=== PATIENT | female | born 1975 | race Caucasian/White ===

== ENCOUNTER 2025-03-15 09:01 | Outpatient (AMB) | payer OTHER, SELFPAY ==
--- NOTE | 2025-03-15 12:53 | MHC.OFFVISWM ---
VS Expanded 03/15/25 13:07 Height 5 ft 5 in Weight 266 lb 8 oz BMI 44.3 Body Fat % 46.6 Body Fat Mass 124.4 Fat Free Mass 142.4 Visceral Fat Rating 15 Body Water Mass 101.6 Basal Metabolic Rate/Score 2,017 Intake Visit Reasons: [employer] [facility] vs [facility] BMI 44.4 Allergies Penicillins Allergy (Mild, Verified 03/15/25 12:54) hives Medication List - Last Reconciled 03/15/25 by Noel Weldon MD albuterol sulfate 90 mcg/actuation inhalation cetirizine (Zyrtec) 10 mg PO DAILY PRN ipratropium-albuterol 0.5 mg-3 mg(2.5 mg base)/3 mL mL inhalation levonorgestrel (Mirena) intrauterine levothyroxine mcg PO DAILY loperamide (Imodium A-D) 2 mg PO Q6H PRN sertraline mg PO HPI HPI [employer] [facility] vs [facility] BMI 44.4: Details: Start time: 12.52pm, End time: 1.41pm ?I spent 44 minutes speaking with the patient on the phone plus an additional 5 minutes reviewing and updating records for a total of 49 minutes HPI Comments Details: Previous weight loss efforts: Weight [employer]chers, Ant, RD x2 Wakes up: 7am, Sleeps: 11pm Breakfast: 8am (eggs with sausage) Lunch: 1pm (as dinner) Dinner: 7pm (chicken, rice, vegetables) Snacks: 4pm (cheese with crackers, fruits), 8pm (cheese, cookies, muffins) Exercise: Has home stationary bike Beverages: Coffee: none, tea: (hot: 1/wk), soda: Activia 0 calories, juice: none, ETOH: none PFSH Medical History (Updated 03/15/25 @ 13:00 by Noel Weldon MD) Anxiety Depression Asthma Sleep apnea treated with continuous positive airway pressure (CPAP) Hypothyroidism GERD (gastroesophageal reflux disease) Morbid obesity Surgical History (Updated 02/08/25 @ 10:51 by Gisell Post CMA) Hx of colonoscopy History of hip surgery History of mandibular surgery Hx of section H/O foot surgery Family History (Updated 02/08/25 @ 09:08 by Gisell Post CMA) Mother Diabetes Dementia Father Non Hodgkin's lymphoma Cancer Diabetes Hypertension Daughter No problems noted. Daughter No problems noted. Son No problems noted. Son No problems noted. Social History (Updated 02/08/25 @ 09:05 by Gisell Post [facility]) Alcohol intake: never Patient Tobacco Use Status: Never used Tobacco Telehealth Telehealth Telehealth Platform: Telephone Location of provider rendering services: practice address Location of patient: address on file Patient Identification confirmed using: Name, : Yes Telehealth method: voice only Patient verbally consented to treatment: Yes Patient verbally consented to billing insurance company: Yes Patient informed of any privacy concerns related to visit: Yes Minutes spent on Phone/Video with Pt.: 49 Assessment & Plan Assessment & Plan (1) Morbid obesity: Code(s): E66.01 - Morbid (severe) obesity due to excess calories Category: Medical Plan: 1.? Plan for lap sleeve gastrectomy. If diaphragmatic or ventral hernias are present at time of surgery, these will be repaired laparoscopically as well. I emphasized the importance of close follow-up, adherence to instructions and good communication. The surgery does not replace the need to change your lifestlyle which is the cause of the obesity problem. The surgery provides the motivation to try again to change your lifestyle, it reduces the appetite and make the transition to a better lifestyle easier and doubles the amount of weight you would lose compared to doing the lifestyle change without the surgery. You will need to be on a liquid diet with protein shakes for 2 weeks before surgery to maximize weight loss and boost your nutritional status to recover better from surgery and also for the first two weeks after surgery to let the stomach heal before we introduce other foods. After the first 2 weeks we will introduce protein bars and soft foods like scrambled eggs, cottage cheese and yogurt and after the 6th week will introduce meat, fish and cooked vegetables in small amounts. Over time you should be able to eat everything in small amounts. Side effects like nausea, vomiting, heartburn or abdominal pain are not common in the practice unless you are not following in the practice. This operation requires lifetime commitment to following in our practice and communication with me. You will much less weight and experience side effects if you don?t communicate or not following in the practice. Complications are rare and in our practice is about 1/10 of the national average. However, you can develop bleeding that may require transfusion (hasn?t happened for year in the practice), you may from complications (we did not have any deaths in the practice) and infections. Infections are usually a result of breakdown in communication or not understanding or following directions correctly. They are difficult to treat, they can happen during the first 6 weeks, they may require to be in the hospital for weeks or even months, not being able to eat by mouth and you may have drains and surgeries to try and correct the issue. Other risks and complications include possible conversion to an open procedure, leaks, small bowel obstruction, blood clots, cardiac, or pulmonary complications, as intermediate manager complications such as ulcers, insufficient weight loss and vitamin deficiencies. 2. You will receive a link of our software philippe to generate an individualized nutritional and exercise plan specific for you. Please send me a screenshot of the plans you will generate Meal to include lean meat (beef, fish, pork, turkey, chicken), or chadian yogurt, or egg whites, or beans with a salad with olive oil and fruits (berries, pears, apples, kiwi). Avoid salt, breads, potatoes, rice, pasta, desserts. ?3. If you choose shakes, each shake would be drunk slowly, like coffee in a period of 2 hours. ?4. If you choose bars, cut each bar in 4 pieces and eat each piece in 30min ?to make each bar last 2 hours. ?5. I emphasized the importance of measuring accurately the food portion and measure it when serving the food in plate ?6. The meal portions include a specific number of forks of meat and salad. You always eat the meat portion but you can replace up to half of salad/vegetables portion with rice, potatoes or pasta, or a fruit ?if you like. The less you do it the better weight loss will be. ?7. One full-size fork is what it can be scooped on the fork without falling aside and not what can be bit with the fork. Use regular forks like those you find in a typical restaurant. ?8.? Please buy the body composition scale we discussed and send me weight measurements as soon as possible and then once a week. Always include your diet and exercise plan. 9. The best exercise choice would be to use your stationary bike at home that can track calories. You can create and exercise plan with the [employer] philippe. ?10.?It is important of avoiding and for at least 18 months postoperatively and has been discussed at the infosession. ?11. Goal is to lose at least 1.5-2lbs per week ?12. Goal to lose 10% of your weight before surgery, which is about 26lbs. Ultimate weight goal: 240lbs before surgery 13. Please follow the diet plan exactly without any change. If you don't like something about the plan or you feel hungry you need to communicate with me so I can help you revise the plan. You should not change the plan yourself. 14. To be scheduled for EGD due to the history of sleeve gastrectomy and anemia. The possibility of biopsies was discussed. Patient needs to avoid use of NSAIDs and aspirin for 1 week prior to EGD. You must be on liquids only the day before your endoscopy. Risks of perforation and bleeding was discussed with the patient. This will be an outpatient procedure with IV sedation. Orders: Orders Hemoglobin A1c Today E03.9 - Hypothyroidism, unspecified, E66.01 - Morbid (severe) obesity due to excess calories, G47.30 - Sleep apnea, unspecified, J45.909 - Unspecified asthma, uncomplicated, K21.9 - Gastro-esophageal reflux disease without esophagitis Complete Blood Count Auto Diff Today E03.9 - Hypothyroidism, unspecified, E66.01 - Morbid (severe) obesity due to excess calories, G47.30 - Sleep apnea, unspecified, J45.909 - Unspecified asthma, uncomplicated, K21.9 - Gastro-esophageal reflux disease without esophagitis IRON PROFILE Today E03.9 - Hypothyroidism, unspecified, E66.01 - Morbid (severe) obesity due to excess calories, G47.30 - Sleep apnea, unspecified, J45.909 - Unspecified asthma, uncomplicated, K21.9 - Gastro-esophageal reflux disease without esophagitis Vitamin B12 and Folate Today E03.9 - Hypothyroidism, unspecified, E66.01 - Morbid (severe) obesity due to excess calories, G47.30 - Sleep apnea, unspecified, J45.909 - Unspecified asthma, uncomplicated, K21.9 - Gastro-esophageal reflux disease without esophagitis Zinc Today E03.9 - Hypothyroidism, unspecified, E66.01 - Morbid (severe) obesity due to excess calories, G47.30 - Sleep apnea, unspecified, J45.909 - Unspecified asthma, uncomplicated, K21.9 - Gastro-esophageal reflux disease without esophagitis Vitamin A Today E03.9 - Hypothyroidism, unspecified, E66.01 - Morbid (severe) obesity due to excess calories, G47.30 - Sleep apnea, unspecified, J45.909 - Unspecified asthma, uncomplicated, K21.9 - Gastro-esophageal reflux disease without esophagitis TSH reflex Free T4 Today E03.9 - Hypothyroidism, unspecified, E66.01 - Morbid (severe) obesity due to excess calories, G47.30 - Sleep apnea, unspecified, J45.909 - Unspecified asthma, uncomplicated, K21.9 - Gastro-esophageal reflux disease without esophagitis XR chest 2V Today E03.9 - Hypothyroidism, unspecified, E66.01 - Morbid (severe) obesity due to excess calories, G47.30 - Sleep apnea, unspecified, J45.909 - Unspecified asthma, uncomplicated, K21.9 - Gastro-esophageal reflux disease without esophagitis Insulin Today E03.9 - Hypothyroidism, unspecified, E66.01 - Morbid (severe) obesity due to excess calories, G47.30 - Sleep apnea, unspecified, J45.909 - Unspecified asthma, uncomplicated, K21.9 - Gastro-esophageal reflux disease without esophagitis H Pylori Breath Test Today E03.9 - Hypothyroidism, unspecified, E66.01 - Morbid (severe) obesity due to excess calories, G47.30 - Sleep apnea, unspecified, J45.909 - Unspecified asthma, uncomplicated, K21.9 - Gastro-esophageal reflux disease without esophagitis Lipid Panel Today E03.9 - Hypothyroidism, unspecified, E66.01 - Morbid (severe) obesity due to excess calories, G47.30 - Sleep apnea, unspecified, J45.909 - Unspecified asthma, uncomplicated, K21.9 - Gastro-esophageal reflux disease without esophagitis Comprehensive Met. Panel Today E03.9 - Hypothyroidism, unspecified, E66.01 - Morbid (severe) obesity due to excess calories, G47.30 - Sleep apnea, unspecified, J45.909 - Unspecified asthma, uncomplicated, K21.9 - Gastro-esophageal reflux disease without esophagitis C Reactive Protein Today E03.9 - Hypothyroidism, unspecified, E66.01 - Morbid (severe) obesity due to excess calories, G47.30 - Sleep apnea, unspecified, J45.909 - Unspecified asthma, uncomplicated, K21.9 - Gastro-esophageal reflux disease without esophagitis Vitamin B1 Today E03.9 - Hypothyroidism, unspecified, E66.01 - Morbid (severe) obesity due to excess calories, G47.30 - Sleep apnea, unspecified, J45.909 - Unspecified asthma, uncomplicated, K21.9 - Gastro-esophageal reflux disease without esophagitis Ferritin Today E03.9 - Hypothyroidism, unspecified, E66.01 - Morbid (severe) obesity due to excess calories, G47.30 - Sleep apnea, unspecified, J45.909 - Unspecified asthma, uncomplicated, K21.9 - Gastro-esophageal reflux disease without esophagitis Vitamin D 25-OH Total Today E03.9 - Hypothyroidism, unspecified, E66.01 - Morbid (severe) obesity due to excess calories, G47.30 - Sleep apnea, unspecified, J45.909 - Unspecified asthma, uncomplicated, K21.9 - Gastro-esophageal reflux disease without esophagitis US abdomen comp w elastography Today E03.9 - Hypothyroidism, unspecified, E66.01 - Morbid (severe) obesity due to excess calories, G47.30 - Sleep apnea, unspecified, J45.909 - Unspecified asthma, uncomplicated, K21.9 - Gastro-esophageal reflux disease without esophagitis ECG 12 lead EKG Today E03.9 - Hypothyroidism, unspecified, E66.01 - Morbid (severe) obesity due to excess calories, G47.30 - Sleep apnea, unspecified, J45.909 - Unspecified asthma, uncomplicated, K21.9 - Gastro-esophageal reflux disease without esophagitis FL upper GI w air Today E03.9 - Hypothyroidism, unspecified, E66.01 - Morbid (severe) obesity due to excess calories, G47.30 - Sleep apnea, unspecified, J45.909 - Unspecified asthma, uncomplicated, K21.9 - Gastro-esophageal reflux disease without esophagitis Referrals Behavioral Health Referral E03.9 - Hypothyroidism, unspecified, E66.01 - Morbid (severe) obesity due to excess calories, G47.30 - Sleep apnea, unspecified, J45.909 - Unspecified asthma, uncomplicated, K21.9 - Gastro-esophageal reflux disease without esophagitis Nutrition/Dietitian Referral E03.9 - Hypothyroidism, unspecified, E66.01 - Morbid (severe) obesity due to excess calories, G47.30 - Sleep apnea, unspecified, J45.909 - Unspecified asthma, uncomplicated, K21.9 - Gastro-esophageal reflux disease without esophagitis Medications: New tirzepatide (weight loss) (Zepbound) for 4 weeks 2.5 mg (0.5 mL) subcut QWEEK 2 mL 0RF E03.9 - Hypothyroidism, unspecified, E66.01 - Morbid (severe) obesity due to excess calories
[2025-03-15 13:07] VITALS: BMI 44.3
== END 2025-03-15 13:42 | disposition home or self-care (01) ==
LOC: HO.HBS 09:01
PROVIDERS: PCP Internal Medicine; Visit Provider Surgery
DX: E66.813 Obesity, class 3 (principal); Z68.41 Body mass index [BMI] 40.0-44.9, adult
CPT/HCPCS: 98010

== ENCOUNTER → 2025-03-24 08:59 | Outpatient (REF) | payer OTHER, SELFPAY ==
--- NOTE | ~2025-03-24 | XR_ITS ---
EXAMINATION: XR CHEST CLINICAL INFORMATION: E66.01 - Morbid (severe) obesity due to excess calories COMPARISON: None available. TECHNIQUE: 2 views of the chest were obtained. FINDINGS: No consolidation, pleural effusion or pneumothorax. Cardiomediastinal silhouette size is normal. Mild S-shaped curvature of the lower thoracic spine. Probable callus formation in the posterior lateral aspect of the right sixth rib. XR/XR chest 2V IMPRESSION: No acute airspace disease. Probable old healed rib fracture, right sixth rib. Electronically signed by: Abhijeet Davalos MD 03/24/2025 02:04 PM EDT
--- NOTE | 2025-03-24 09:44 | ECG_ITS ---
Test Reason : mor obesity Blood Pressure : */* mmHG Vent. Rate : 70 BPM Atrial Rate : 70 BPM P-R Int : 134 ms QRS Dur : 84 ms QT Int : 420 ms P-R-T Axes : 5 18 32 degrees QTcB Int : 453 ms Normal sinus rhythm Normal ECG No previous ECGs available Referred By: Noel Weldon Electronically Signed By: CASSIDY DEL ROSARIO
[2025-03-24 10:07] LABS: MANUAL DIFF FLAG NO
[2025-03-24 10:47] LABS: Basophils Percent Auto 0.9 % (0-2); Eosinophils Percent Auto 0.9 % (0-4); Hematocrit 41.3 % (37.0-47.0); Hemoglobin 13.6 g/dl (12.0-16.0); Imm Gran Abs Auto 0.01 X10*3/uL (0.00-0.03); Imm Gran Pct Auto 0.3 % (0.0-0.4); Lymphocytes Absolute Auto 1.6 X10*3/uL (1.2-4.9); Lymphocytes Percent Auto 47.5 % (20-40); Mean Corpuscular HGB Conc 32.9 g/dl (31.0-35.0); Mean Corpuscular Hemoglobin 28.9 pg (27.0-33.0); Mean Corpuscular Volume 87.9 fL (80.0-98.0); Mean Platelet Volume 9.9 fL (9.4-12.3); Monocytes Absolute Auto 0.3 X10*3/uL (0.1-1.2); Monocytes Percent Auto 8.6 % (2-11); Neutrophils Absolute Auto 1.4 x10*3/uL (2.0-8.3); Neutrophils Percent Auto 41.8 % (45-73); Platelet Count 269 X10*3/uL (160-400); Red Cell Distribution Width 12.5 % (11.0-16.0); White Blood Count 3.4 X10*3/uL (4.8-10.8)
[2025-03-24 11:01] LABS: Estimated Average Glucose 126 mg/dL; Hemoglobin A1C 151.7749 umol/L; Total Hemoglobin (HGBA1C) 3637.5866 umol/L
[2025-03-24 11:28] LABS: Alanine Aminotransferase 58 U/L (0-31); Albumin Level 4.4 g/dL (3.5-5.0); Alkaline Phosphatase 79 U/L (39-117); Anion Gap 11 (12-20); Aspartate Amino Transferase 45 U/L (5-31); Bilirubin Total 0.6 mg/dL (0.0-1.0); Blood Urea Nitrogen 13 mg/dL (9-16); C Reactive Protein 0.78 mg/dL (< or = 0.50); Calcium 9.1 mg/dL (8.4-10.2); Carbon Dioxide 25 mmol/L (22-29); Chloride 106 mmol/L (96-108); Cholesterol 162 mg/dL (<200); Estimated Glomerular Filt Rate > 60; Glucose Random 99 mg/dL (60-115); HDL Cholesterol 37 mg/dL (>40); Iron 162 mcg/dL (30-160); LDL Cholesterol Calculated 103 mg/dL (<100); Percent Iron Saturation 48 % (15-50); Potassium 3.8 mmol/L (3.3-5.1); Sodium 138 mmol/L (135-145); Total Iron Binding Capacity 336 mcg/dL (228-428); Total Protein 7.5 g/dL (6.5-8.0); Triglycerides 111 mg/dL (<150); Unsaturated Iron Binding 174 ug/dL
[2025-03-24 11:40] LABS: Ferritin 142 ng/mL (10-250); TSH reflex Free T4 1.26 uIU/mL (0.32-4.0); Vitamin D 25-OH Total 22.7 ng/mL (>30)
[2025-03-24 11:52] LABS: Folate 6.9 ng/mL (> or = 4.0); Vitamin B12 397 pg/mL (200-900)
[2025-03-24 11:58] LABS: Insulin 20 uU/mL (2-29)
== END ==
LOC: HO.CARD 08:59
PROVIDERS: PCP Internal Medicine; Visit Provider Surgery
DX: E66.01 Morbid (severe) obesity due to excess calories (principal); E03.9 Hypothyroidism, unspecified; K21.9 Gastro-esophageal reflux disease without esophagitis; J45.909 Unspecified asthma, uncomplicated; G47.30 Sleep apnea, unspecified
CPT/HCPCS: 36415; 71046; 80053; 80061; 82306; 82607; 82728; 82746; 83036; 83525; 83540; 84425; 84443; 84590; 84630; 85025; 86140; 93005

== ENCOUNTER → 2025-03-24 09:34 | Outpatient (BNV) | payer OTHER, SELFPAY | PROVIDERS: PCP Internal Medicine; Visit Provider Radiology Diagnostic Radiology | DX: E66.01 Morbid (severe) obesity due to excess calories (principal) | CPT/HCPCS: 71046 ==

== ENCOUNTER → 2025-03-24 09:44 | Outpatient (BNV) | payer OTHER, SELFPAY | PROVIDERS: PCP Internal Medicine; Visit Provider Internal Medicine | DX: E66.01 Morbid (severe) obesity due to excess calories (principal) | CPT/HCPCS: 93010 ==

== ENCOUNTER 2025-04-19 08:27 | Outpatient (AMB) | payer OTHER, SELFPAY ==
--- NOTE | 2025-04-19 08:05 | MHC.WMTHER ---
Intake Intake Visit Reasons: TV BH Intake Allergies Penicillins Allergy (Mild, Verified 03/15/25 12:54) hives [facility] Medical History (Updated 04/05/25 @ 17:35 by Noel Weldon MD) Anxiety Depression Asthma Sleep apnea treated with continuous positive airway pressure (CPAP) Hypothyroidism GERD (gastroesophageal reflux disease) Morbid obesity Surgical History (Updated 02/08/25 @ 10:51 by Gisell Post CMA) Hx of colonoscopy History of hip surgery History of mandibular surgery Hx of section H/O foot surgery Family History (Updated 02/08/25 @ 09:08 by Gisell Post CMA) Mother Diabetes Dementia Father Non Hodgkin's lymphoma Cancer Diabetes Hypertension Daughter No problems noted. Daughter No problems noted. Son No problems noted. Son No problems noted. Social History (Updated 02/08/25 @ 09:05 by Gisell Post CMA) Alcohol intake: never Patient Tobacco Use Status: Never used Tobacco Behavioral Health Assessment Weight Management Therapy Therapy Notes Details The patient is a 49-year-old female who presents for her initial visit to begin the behavioral health assessment as part of the surgical weight loss program. She was initially referred to the program by her primary care provider and expressed interest in weight loss medication. However, she now feels that medication alone will not address the underlying issues that contributed to her weight gain and is seeking a more comprehensive approach to her health and well-being. Presenting Concerns Referral Source WMP- Provider Reason for referral Completion of behavioral health assessment as part of process for weight-loss surgery. Precipitating Event Obesity. Food/Weight/Diet Expectations of change PT started the program on 03/15/2025 at 266 lbs. The initial goal is to lose 10% of your weight before surgery, which is about 26 lbs. The ultimate weight goal is 240 lbs. before surgery. And her most recent weight is as of today 04/19/2025 247Lbs. Patient goals are PT is implementing the following: Current meal plan: Exercise plan: History/Relationship with food Example of meals before starting the program: Breakfast: Lunch: Dinner: Snacks: Drinks/Liquids: History/Relationship with weight Doesn't eat gluten years ago due to migraines. In the last 10 years, the patient's Lowest weight was and the highest Social History Family history and relationship PT is for about 28 years. They have 4 children, the oldest is 26 and the youngest is 13. Her father is , and her mother is alive; she has dementia. She has 2 sisters and 1 brother. all of her 's family lives in the area. PT reports good family relationships. 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 Her 19 y/o is in college, and she is home for the summer. PT also cares for her mother 2x year for about 2 months at the time, Developmental history and status None reported. Currently WNL. Social support and children. close friend (Jenn). sister. Community support Friends from m[employer]onism. 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 Cultural/Ethnic information PT was born in [place]. And most of his family is still there. Legal Involvement and History Current or historical involvement with the legal system? None reported. Education Highest grade completed Bachelors degree Preferred learning style Learn by doing and Visual Currently enrolled in educational program? No Interested in further educational program? 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 ) Wants help to find employment? No Meaningful activities Gardening, reading, sewing/quilting, crocheting, wood working projects, refinishing things. Financial Situation Describe current financial situation Comfortable Financial assistance? Other (Insurance. ) Service Service? No Mental Health and Addiction Treatment Psychiatric history Patient currently attends counseling on a monthly basis. She began therapy approximately five years ago due to symptoms of anxiety and depression. She has experienced a few panic attacks in the past but reports stability since starting medication. She is currently prescribed Sertraline 150 mg, managed by her primary care provider. For counseling, she sees [facility]. Questionnaires PHQ-9 Over the last 2 weeks, how often have you been bothered by any of the following problems? 1. Little interest or pleasure in doing things: several days 2. Feeling down, depressed, or hopeless: not at all 3. Trouble falling or staying asleep, or sleeping too much: several days 4. Feeling tired or having little energy: more than half the days 5. Poor appetite or overeating: more than half the days 6. Feeling bad about yourself - or that you are a failure or have let yourself or your family down: several days 7. Trouble concentrating on things, such as reading the newspaper or watching television: several days 8. Moving or speaking so slowly that other people could have noticed. Or the opposite - being so fidgety or restless that you have been moving around a lot more than usual: not at all 9. Thoughts that you would be better off or of hurting yourself in some way: not at all Total score: 8 Depression Screening Interpretation: Positive (From new PT pack completed on 02/08/2025 - New one will be administered at next philippe.) Depression Screening Done: Yes Source: Developed by Drs. Yossi Turner, Haily Andino, Chevy Mckinney and colleagues, with an educational messi from [employer]. Binge Eating Scale Group 1 A. I don't feel self-conscious about my wt. or body size when I'm with others. B. I feel concerned about how I look to others, but it normally does not make me fell disappointed with myself C. I do get self-conscious about my appearance and wt. which makes me feel disappointed in myself. D. I feel very self-conscious about my wt. and frequently I feel intense shame and disgust for myself. I try to avoid social contacts because of my self-consciousness. Response Group 1: B Group 2 A. I don't have any difficulty eating slowly in the proper manner. B. Although I seem to gobble down foods, I don't end up feeling stuffed because of eating to much. C. At times, I tend to eat quickly and then, I feel uncomfortably full afterwards. D. I have the habit of bolting down my food, without really chewing it. When this happens I usually feel uncomfortably stuffed because I've eaten to much. Response Group 2: C Group 3 A. I feel capable to control my eating urges when I want to. B. I feel like I have failed to control my eating more than the average person. C. I feel utterly helpless when it comes to feeling in control of my eating urges. D. Because I feel so helpless about controlling my eating I have become very desperate about trying to get control. Response Group 3: B Group 4 A. I don't have the habit of eating when I'm bored. B. I sometimes eat when I'm bored, but often I'm able to get busy and get my mind off food. C. I have a regular habit of eating when I'm bored, but occasionally, I can use some other activity to get my mind off eating. D. I have a strong habit of eating when I'm bored. Nothing seems to help me breath the habit. Response Group 4: C Group 5 A. I'm usually physically hungry when I eat something. B. Occasionally, I eat something on impulse even though I really am not hungry. C. I have the regular habit of eating foods, that I might not really enjoy, to satisfy a hungry feeling even though physically, I don't need the food. D. Although I'm not physically hungry, I get a hungry feeling in my mouth that only seems to be satisfied when I eat a food, like sandwich, that fills my mouth. Sometimes, when I eat the food to satisfy my mouth hunger, I then spit the food out so I won't gain weight. Response Group 5: B Group 6 A. I don't feel any guilt or self-hate after I overeat. B. After I overeat, occasionally I feel guilt or self-hate. C. Almost all the time I experience strong guilt or self-hate after I overeat. Response Group 6: A Group 7 A. I don't lose total control of my eating when dieting even after periods when I overeat. B. Sometimes when I eat a forbidden food on a diet, I feel like I blew it and eat even more. C. Frequently, I have the habit of saying to myself, I've blown it now, why not go all the way, when I overeat on a diet. When that happens I eat more. D. I have a regular habit of starting a strict diets for myself but I break the diets by going on an eating binge. My life seems to be either a feast or famine. Response Group 7: A Group 8 A. I rarely eat so much food that I feel uncomfortably stuffed afterwards. B. Usually about once a month, I each such a quantity of food, I end up feeling very stuffed. C. I have regular periods during the month when I eat large amounts of food, either at mealtime or at snacks. D. I eat so much food that I regularly feel quite uncomfortable after eating and sometimes a bit nauseous. Response Group 8: B Group 9 A. My level of calorie intake does not go up very high or go down very low on a regular basis. B. Sometimes after I overeat, I will try to reduce my caloric intake to almost nothing to compensate for the excess calories I've eaten. C. I have a regular habit of overeating during the night. It seems that my routine is not to be hungry in the morning but overeat in the evening. D. In my adult years, I have had week-long periods where I practically starve myself. This follows periods when I overeat. It seems I live a life of either feast or famine. Response Group 9: C Group 10 A. I usually am able to stop eating when I want to. I know when enough is enough. B. Every so often, I experience a compulsion to eat which I can't seem to control. C. Frequently, I experience strong urges to eat which I seem unable to control, but at other times I can control my eating urges. D. I feel incapable of controlling urges to eat. I have a fear of not being able to stop eating voluntarily. Response Group 10: B Group 11 A. I don't have any problem stopping eating when I feel full. B. I usually can stop eating when I feel full but occasionally overeat leaving me feeling uncomfortably stuffed. C. I have a problem stopping eating once I start and usually I feel uncomfortably stuffed after I eat a meal. D. Because I have a problem not being able to stop eating when I want, I sometimes have to induce vomiting to relieve my stuffed feeling. Response Group 11: B Group 12 A. I seem to eat just as much when I'm with others, Family social gatherings as when I'm by myself. B. Sometimes, when I'm with other persons, I don't eat as much as I want to eat because I'm self-conscious about my eating. C. Frequently, I eat only a small amount of food when others are present, because I'm very embarrassed about my eating. D. I feel so ashamed about overeating that I pick times to overeat when I know no one will see me. I feel like a closet eater. Response Group 12: A Group 13 A. I eat three meals a day with only an occasional between meal snack. B. I eat 3 meals a day, but I also normally snack between meals. C. When I am snacking heavily, I get in the habit of skipping regular meals. D. There are regular periods when I seem to be continually eating, with no planned meals. Response Group 13: B Group 14 A. I don't think much about trying to control unwanted eating urges. B. At least some of the time, I feel my thoughts are pre-occupied with trying to control my eating urges. C. I feel that frequently I spend much time thinking about how much I ate or about trying not to eat anymore. D. It seems to me that most of my waking hours are pre-occupied by thoughts about eating or not eating. I feel like I'm constantly struggling not to eat. Response Group 14: B Group 15 A. I don't think about food a great deal. B. I have strong craving for food but they last only for brief periods of time. C. I have days when I can't seem to think about anything else but food. D. Most of my days seem to be pre-occupied with thoughts about food. I feel like I live to eat. Response Group 15: B Group 16 A. I usually know whether or not I'm physically hungry. I take the right portion of food to satisfy me. B. Occasionally, I feel uncertain about knowing whether or not I'm physically hungry. A these times it's hard to know how much food I should take to satisfy me. C. Even though I might know how many calories I should eat, I don't have any idea what is a normal amount of food for me. Response Group 16: B Binge Eating Score: 16 Score less than 17 Minimal Risk Score between 18-26 Moderate Risk Score between 27-46 High Risk Assessment & Plan Assessment & Plan (1) Anxiety disorder: Code(s): F41.9 - Anxiety disorder, unspecified (2) Pre-bariatric surgery psychological evaluation: Code(s): Z71.89 - Other specified counseling Plan Patient is not cleared at this time, as the behavioral health assessment is still in progress. She is scheduled to return in two weeks to continue the evaluation. Next Appointment: May 03, 2025, at 9:00 AM via telehealth. Telehealth [facility]health [facility] Location of [facility] rendering services: other Location of patient: address on file Patient Identification confirmed using: Name, : Yes Telehealth method: video Patient verbally consented to treatment: Yes Patient verbally consented to billing insurance company: Yes Patient informed of any privacy concerns related to visit: Yes Minutes spent on Phone/Video with Pt.: 60 Coding Level of Care Code New Pt Tele Psy Diag Jair ([id number]) Patient Type New Diagnoses Anxiety disorder F41.9 Pre-bariatric surgery psychological evaluation Z71.89 Time Spent (min) 60
== END 2025-04-19 09:11 | disposition home or self-care (01) ==
LOC: HO.HBST 08:27
PROVIDERS: PCP Internal Medicine; Visit Provider Counselor Mental Health
DX: F41.9 Anxiety disorder, unspecified (principal); Z71.89 Other specified counseling
CPT/HCPCS: 90791

== ENCOUNTER 2025-04-28 08:03 | Outpatient (REF) | payer OTHER, SELFPAY ==
--- NOTE | ~2025-04-28 | US_ITS ---
EXAMINATION: US COMPLETE ABDOMEN WITH LIVER ELASTOGRAPHY CLINICAL INFORMATION: Moderate/severe obesity due to excess calories COMPARISON: None available. TECHNIQUE: Real-time imaging of the abdominal viscera. Noninvasive ultrasound liver fibrosis assessment is performed using [employer] ElastPQ point quantification shear wave elastography (pSWE) with a C5-2 MHz transducer. Multiple elastography samples are obtained. FINDINGS: The exam is slightly limited due to body habitus. PANCREAS: The visualized pancreatic head and body are normal in appearance. The remainder of the pancreas is obscured from visualization by the overlying bowel gas. ABDOMINAL AORTA: No aortic aneurysm is seen. INFERIOR VENA CAVA: Visualized portions are normal. LIVER: The liver demonstrates normal size, contour and increased echogenicity. No focal lesion or intrahepatic biliary duct dilatation. The right lobe measures 16.1 cm in length. The left lobe measures 12.9 cm in length. Portal flow is hepatopedal Shear wave liver elastography median stiffness is 1.70 m/s (reference: normal median stiffness is 1.3 m/s or less). IQR/median stiffness to assess sampling precision is 0.08 (reference: good quality data set is IQR/median stiffness of 0.15 or less). GALLBLADDER: The gallbladder is physiologically distended without evidence of stones, sludge, polyps, wall thickening or pericholecystic fluid. Gallbladder wall thickness is 0.2 cm. COMMON BILE DUCT: Normal in caliber measuring 0.6 cm in diameter. RIGHT KIDNEY: No hydronephrosis. No renal calculi or focal parenchymal lesions. The kidney measures 10.4 cm in maximum dimension. LEFT KIDNEY: No hydronephrosis. No renal calculi or focal parenchymal lesions. The kidney measures 10.8 cm in maximum dimension. SPLEEN: Unremarkable. The spleen measures 10.2 cm in maximum dimension. FREE FLUID: None seen. US/US abdomen comp w elastography IMPRESSION: 1. Fatty liver. 2. Liver elastography: Median liver stiffness 1.70 suggestive of compensated advanced chronic liver disease. REFERENCE: Society of Radiologists in Ultrasound Liver Stiffness Thresholds (2020): LIVER STIFFNESS THRESHOLDS: *Liver Stiffness equal or less than 1.3 m/s: High probability of being normal. *Liver Stiffness less than 1.7 m/s: In the absence of other known clinical signs, rules out compensated advanced chronic liver disease. *Liver Stiffness 1.7-2.1 m/s: Suggestive of compensated advanced chronic liver disease but need further test for confirmation. *Liver Stiffness over 2.1 m/s: Rules in compensated advanced chronic liver disease. *Liver Stiffness over 2.4 m/s: Suggestive of clinically significant portal hypertension. QUALITY OF DATA SET: *IQR/Median value equal or less than 0.15 implies a quality data set. *IQR/Median value over 0.15 implies a poor quality data set. SIGNIFICANT CHANGE FROM PRIOR EXAM: Significant change if liver stiffness measurement is 10% or greater from prior exam. OTHER CONSIDERATIONS: The stage of liver fibrosis may be overestimated in the setting of acute hepatitis, liver inflammation, elevated liver function tests, hepatic vascular congestion, obstructive cholestasis, non-fasting state, and infiltrative diseases such as amyloidosis and lymphoma. In some patients with NAFLD, the liver stiffness thresholds for compensated advanced chronic liver disease may be lower. In causes other than viral hepatitis and NAFLD, liver stiffness thresholds are not well established. Electronically signed by: Randall Limon MD 04/28/2025 09:14 AM EDT
== END 2025-04-28 08:04 | disposition home or self-care (01) ==
LOC: HO.US 08:03
PROVIDERS: PCP Internal Medicine; Visit Provider Surgery
DX: E66.01 Morbid (severe) obesity due to excess calories (principal); E03.9 Hypothyroidism, unspecified; K21.9 Gastro-esophageal reflux disease without esophagitis; J45.909 Unspecified asthma, uncomplicated; G47.30 Sleep apnea, unspecified
CPT/HCPCS: 76700; 76981

== ENCOUNTER → 2025-04-28 08:06 | Outpatient (BNV) | payer OTHER, SELFPAY | PROVIDERS: PCP Internal Medicine; Visit Provider Radiology Diagnostic Radiology | DX: K76.9 Liver disease, unspecified (principal) | CPT/HCPCS: 76700 ==

== ENCOUNTER 2025-05-03 09:20 | Outpatient (AMB) | payer OTHER, SELFPAY ==
--- NOTE | 2025-05-03 09:05 | A.OFFWM_ITS ---
Intake Intake Visit Reasons: VIDEO Intake Part 2 Allergies Penicillins Allergy (Mild, Verified 03/15/25 12:54) hives [facility] Medical History (Updated 04/05/25 @ 17:35 by Noel Weldon MD) Anxiety Depression Asthma Sleep apnea treated with continuous positive airway pressure (CPAP) Hypothyroidism GERD (gastroesophageal reflux disease) Morbid obesity Surgical History (Updated 02/08/25 @ 10:51 by Gisell Post [facility]) Hx of colonoscopy History of hip surgery History of mandibular surgery Hx of section H/O foot surgery Family History (Updated 02/08/25 @ 09:08 by Gisell Post CMA) Mother Diabetes Dementia Father Non Hodgkin's lymphoma Cancer Diabetes Hypertension Daughter No problems noted. Daughter No problems noted. Son No problems noted. Son No problems noted. Social History (Updated 02/08/25 @ 09:05 by Gisell Post CMA) Alcohol intake: never Patient Tobacco Use Status: Never used Tobacco Behavioral Health Assessment Weight Management Therapy Therapy Notes Details The patient is a 49-year-old female presenting for her second visit to complete the behavioral health assessment as part of the surgical weight loss program. Initially referred by her primary care provider, she first expressed interest in weight loss medication. However, she now recognizes that medication alone will not address the underlying contributors to her weight gain and is seeking a more comprehensive, holistic approach to improving her health and well-being. She has been in individual therapy for approximately five years with Ro Benjamin [facility], for the treatment of anxiety and depression. She attends monthly sessions and reports stability in her symptoms. She is currently prescribed Sertraline 150 mg, managed by her primary care provider. Past panic attacks have been well controlled with treatment. She denies any history of psychiatric hospitalization, mental health crisis, and/or recent concerns around suicidal id eation, self-harm, or harm to others. No history of substance use is reported. There is no evidence of current emotional or stress-related eating. Scores on the Binge Eating Scale (BES) indicate a low risk for disordered eating, and PHQ- 9 results show no active depressive symptoms. Mental status exam findings are within normal limits, indicating no impairment in current functioning. The patient is considered stable and is cleared from a behavioral health standpoint. Presenting Concerns Referral Source WMP- Provider Reason for referral Completion of behavioral health assessment as part of process for weight-loss surgery. Precipitating Event Obesity. Living Situation Current Living Situation Own At risk of losing current housing? No Satisfied with current living situation? Yes Comments PT lives with her and children. Food/Weight/Diet Expectations of change PT started the program on 03/15/2025 at 266 lbs. The initial goal is to lose 10% of your weight before surgery, which is about 26 lbs. The ultimate weight goal is 240 lbs. before surgery. Weight is as of 04/19/2025: 247 lbs. Most recent weight as of 05/03/2025: 242 lbs. Target weight: 140- 150 lbs. PT is implementing the following: Current meal plan: combination of shakes/bars and 1 or 2 meals per day. She uses the right BMI and uses a combination of 2 types of plans depending on her days. Exercise plan: outdoor Walks. Scale: Yes. Communication with provider: yes, on Mondays. History/Relationship with food PT reports she likes to eat, she used to eat until feeling full, and when she was younger and more active, she didn't pay attention to food. when kids were younger, they were doing takeout out couple of days a week, or if they were running around, they would have more snacks than usual Example of meals before starting the program: Breakfast: eggs, sausage, and tater tots. Lunch: leftovers from dinner. Dinner: @7om - protein, starch, and a veggie, variety of casseroles, things in the crockpot (chicken/enchilada soup). 2x week takeout ([id number], chipotle, pizza) Snacks: cottage cheese, cheese and crackers, cheese and pepperoni. Drinks/Liquids: coffee: None. Juice: None. Water: about 60oz per day, at times, would add the true lemon powder. soda: none but does 2-3 No-calorie soda with/ stevia. History/Relationship with weight PT reports she doesn't eat gluten for years due to migraines. She was 120 lbs and very lean in her early 20s while in college. PT reports she has been overweight after having children. In her 20's, losing weight was easier. Now, in her 40s, it has been hard. in 2019 she was injured and had surgery on her foot, later in 2022 had to do the other foot, and she slowly gained at least 50 lbs. In the last 10 years, the patient's Lowest weight was 180Lbs and the highest 265Lbs History/Relationship with dieting Have met with a dietitian ( they worked on portion control, balanced eating, and intuitive eating), self-diet, PORFIRIO (23 years ago, was able to be at 150Lbs)Ant. Binge Eating Do you frequently eat large amounts of food in short periods of time, not feeling physically hungry? No Do you feel out of control when you eat a large amount of food in a short period of time? No Do you eat large amounts of food rapidly and typically alone? No Night Eating Do you wake up at least once during the night to eat? No If you wake up in the night, do you find that it is necessary to eat something in order to fall back asleep? No Do you have little or no appetite in the morning and feel very hungry in the evening, often overeating between dinner and when you go to bed? No Social History Family history and relationship PT is for about 28 years. They have 4 children, the oldest is 26 and the youngest is 13. Her father is , and her mother is alive; she has dementia. She has 2 sisters and 1 brother. all of her 's family lives in the area. PT reports good family relationships. 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 Her 19 y/o is in college, and she is home for the summer. PT also cares for her mother 2x year for about 2 months at the time, Developmental history and status None reported. Currently WNL. Social support and children. close friend (Jenn). sister. Community support Friends from [place]. 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 Jain/Spirituality Buddhism. Cultural/Ethnic information PT was born in [place]. And most of his family is still there. Legal Involvement and History Current or historical involvement with the legal system? None reported. Education Highest grade completed Bachelors degree Preferred learning style Learn by doing and Visual Currently enrolled in educational program? No Interested in further educational program? 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 ) Wants help to find employment? No Meaningful activities Gardening, reading, sewing/quilting, crocheting, wood working projects, refinishing things. Financial Situation Describe current financial situation Comfortable Financial assistance? Other (Insurance. ) Service Service? No Mental Health and Addiction Treatment Current/Past substance abuse? No Comments Alcohol: None Cigarettes/Tobacco: None Cannabis/Edibles: None Current/Past addictive behavior concerns? No Psychiatric history Patient currently attends counseling on a monthly basis. She began therapy approximately five years ago due to symptoms of anxiety and depression. She has experienced a few panic attacks in the past but reports stability since starting medication. She is currently prescribed Sertraline 150 mg, managed by her primary care provider. For counseling, she sees Ro Benjamin [facility]. Pt reports she has been never hospitalized or in crisis. Also denies any safety concerns around Suicidality, self-harm, and other-harm. SI several years ago after miscarriages over 24 years ago. Medical and Physical Health Summary Additional Medical History not covered in history None reported. Sexual History concerns None reported. Physical exam in the last year? Yes Pain Screening Current pain? No Pain in the last few months? Yes Comments Shoulder, feet pain (she had some ligaments damage, and fixed alignment issues after she injured). Medications Is the patient compliant with medications? Yes Does the patient have Gomez Guardian in place? Not applicable Does the patient use complimentary health approaches? No Trauma/Abuse History History of trauma? No Questionnaires PHQ-9 Over the last 2 weeks, how often have you been bothered by any of the following problems? 1. Little interest or pleasure in doing things: not at all 2. Feeling down, depressed, or hopeless: not at all 3. Trouble falling or staying asleep, or sleeping too much: several days (falling asleep.) 4. Feeling tired or having little energy: not at all 5. Poor appetite or overeating: not at all 6. Feeling bad about yourself - or that you are a failure or have let yourself or your family down: several days (mom guilt.) 7. Trouble concentrating on things, such as reading the newspaper or watching television: not at all 8. Moving or speaking so slowly that other people could have noticed. Or the opposite - being so fidgety or restless that you have been moving around a lot more than usual: not at all 9. Thoughts that you would be better off or of hurting yourself in some way: not at all Total score: 2 Depression Screening Interpretation: Negative Depression Screening Done: Yes 29932 - PHQ-9 Billing: Yes Source: Developed by Drs. Yossi Turner, Haily Andino, Chevy Mckinney and colleagues, with an educational messi from [employer]. Binge Eating Scale Group 1 A. I don't feel self-conscious about my wt. or body size when I'm with others. B. I feel concerned about how I look to others, but it normally does not make me fell disappointed with myself C. I do get self-conscious about my appearance and wt. which makes me feel disappointed in myself. D. I feel very self-conscious about my wt. and frequently I feel intense shame and disgust for myself. I try to avoid social contacts because of my self- consciousness. Response Group 1: B Group 2 A. I don't have any difficulty eating slowly in the proper manner. B. Although I seem to gobble down foods, I don't end up feeling stuffed because of eating to much. C. At times, I tend to eat quickly and then, I feel uncomfortably full afterwards. D. I have the habit of bolting down my food, without really chewing it. When this happens I usually feel uncomfortably stuffed because I've eaten to much. Response Group 2: C Group 3 A. I feel capable to control my eating urges when I want to. B. I feel like I have failed to control my eating more than the average person. C. I feel utterly helpless when it comes to feeling in control of my eating urges. D. Because I feel so helpless about controlling my eating I have become very desperate about trying to get control. Response Group 3: B Group 4 A. I don't have the habit of eating when I'm bored. B. I sometimes eat when I'm bored, but often I'm able to get busy and get my mind off food. C. I have a regular habit of eating when I'm bored, but occasionally, I can use some other activity to get my mind off eating. D. I have a strong habit of eating when I'm bored. Nothing seems to help me breath the habit. Response Group 4: C Group 5 A. I'm usually physically hungry when I eat something. B. Occasionally, I eat something on impulse even though I really am not hungry. C. I have the regular habit of eating foods, that I might not really enjoy, to satisfy a hungry feeling even though physically, I don't need the food. D. Although I'm not physically hungry, I get a hungry feeling in my mouth that only seems to be satisfied when I eat a food, like sandwich, that fills my mouth. Sometimes, when I eat the food to satisfy my mouth hunger, I then spit the food out so I won't gain weight. Response Group 5: B Group 6 A. I don't feel any guilt or self-hate after I overeat. B. After I overeat, occasionally I feel guilt or self-hate. C. Almost all the time I experience strong guilt or self-hate after I overeat. Response Group 6: A Group 7 A. I don't lose total control of my eating when dieting even after periods when I overeat. B. Sometimes when I eat a forbidden food on a diet, I feel like I blew it and eat even more. C. Frequently, I have the habit of saying to myself, I've blown it now, why not go all the way, when I overeat on a diet. When that happens I eat more. D. I have a regular habit of starting a strict diets for myself but I break the diets by going on an eating binge. My life seems to be either a feast or famine. Response Group 7: A Group 8 A. I rarely eat so much food that I feel uncomfortably stuffed afterwards. B. Usually about once a month, I each such a quantity of food, I end up feeling very stuffed. C. I have regular periods during the month when I eat large amounts of food, either at mealtime or at snacks. D. I eat so much food that I regularly feel quite uncomfortable after eating and sometimes a bit nauseous. Response Group 8: B Group 9 A. My level of calorie intake does not go up very high or go down very low on a regular basis. B. Sometimes after I overeat, I will try to reduce my caloric intake to almost nothing to compensate for the excess calories I've eaten. C. I have a regular habit of overeating during the night. It seems that my routine is not to be hungry in the morning but overeat in the evening. D. In my adult years, I have had week-long periods where I practically starve myself. This follows periods when I overeat. It seems I live a life of either feast or famine. Response Group 9: C Group 10 A. I usually am able to stop eating when I want to. I know when enough is enough. B. Every so often, I experience a compulsion to eat which I can't seem to control. C. Frequently, I experience strong urges to eat which I seem unable to control, but at other times I can control my eating urges. D. I feel incapable of controlling urges to eat. I have a fear of not being able to stop eating voluntarily. Response Group 10: B Group 11 A. I don't have any problem stopping eating when I feel full. B. I usually can stop eating when I feel full but occasionally overeat leaving me feeling uncomfortably stuffed. C. I have a problem stopping eating once I start and usually I feel uncomfortably stuffed after I eat a meal. D. Because I have a problem not being able to stop eating when I want, I sometimes have to induce vomiting to relieve my stuffed feeling. Response Group 11: B Group 12 A. I seem to eat just as much when I'm with others, Family social gatherings as when I'm by myself. B. Sometimes, when I'm with other persons, I don't eat as much as I want to eat because I'm self-conscious about my eating. C. Frequently, I eat only a small amount of food when others are present, because I'm very embarrassed about my eating. D. I feel so ashamed about overeating that I pick times to overeat when I know no one will see me. I feel like a closet eater. Response Group 12: A Group 13 A. I eat three meals a day with only an occasional between meal snack. B. I eat 3 meals a day, but I also normally snack between meals. C. When I am snacking heavily, I get in the habit of skipping regular meals. D. There are regular periods when I seem to be continually eating, with no planned meals. Response Group 13: B Group 14 A. I don't think much about trying to control unwanted eating urges. B. At least some of the time, I feel my thoughts are pre-occupied with trying to control my eating urges. C. I feel that frequently I spend much time thinking about how much I ate or about trying not to eat anymore. D. It seems to me that most of my waking hours are pre-occupied by thoughts about eating or not eating. I feel like I'm constantly struggling not to eat. Response Group 14: B Group 15 A. I don't think about food a great deal. B. I have strong craving for food but they last only for brief periods of time. C. I have days when I can't seem to think about anything else but food. D. Most of my days seem to be pre-occupied with thoughts about food. I feel like I live to eat. Response Group 15: B Group 16 A. I usually know whether or not I'm physically hungry. I take the right portion of food to satisfy me. B. Occasionally, I feel uncertain about knowing whether or not I'm physically hungry. A these times it's hard to know how much food I should take to satisfy me. C. Even though I might know how many calories I should eat, I don't have any idea what is a normal amount of food for me. Response Group 16: B Binge Eating Score: 16 Score less than 17 Minimal Risk Score between 18-26 Moderate Risk Score between 27-46 High Risk Assessment & Plan Assessment & Plan (1) Anxiety disorder: Code(s): F41.9 - Anxiety disorder, unspecified (2) Pre-bariatric surgery psychological evaluation: Code(s): Z71.89 - Other specified counseling Plan From a behavioral health standpoint, the patient is cleared to proceed and may be submitted for surgery when clinically appropriate. A post-operative follow-up is recommended within 1 to 3 weeks after surgery to monitor psychological adjustment, assess ongoing needs, and support continued progress. Next philippe: 1-3 weeks PO. Telehealth Telehealth Telehealth Platform: Pathflow Location of provider rendering services: other Location of patient: address on file Patient Identification confirmed using: Name, : Yes Telehealth method: video Patient verbally consented to treatment: Yes Patient verbally consented to billing insurance company: Yes Patient informed of any privacy concerns related to visit: Yes Minutes spent on Phone/Video with Pt.: 60 Coding Level of Care Code Established Pt Tele Psytx >53 mins (30185) Patient Type Established Diagnoses Anxiety disorder F41.9 Pre-bariatric surgery psychological evaluation Z71.89 Additional Codes PHQ-9 - 80225 - PHQ-9 Billing: Yes ([id number]) Time Spent (min) 60
== END 2025-05-03 10:18 | disposition home or self-care (01) ==
LOC: HO.HBST 09:20
PROVIDERS: PCP Internal Medicine; Visit Provider Counselor Mental Health
DX: F41.9 Anxiety disorder, unspecified (principal); Z71.89 Other specified counseling
CPT/HCPCS: 90837

== ENCOUNTER → 2025-05-03 09:20 | Outpatient (BNVA) | payer OTHER, SELFPAY | PROVIDERS: PCP Internal Medicine; Visit Provider Counselor Mental Health ==

== ENCOUNTER 2025-05-12 10:28 | Day surgery (SDC) | payer OTHER, SELFPAY ==
--- NOTE | 2025-05-10 12:55 | HO.ANESPROP2 ---
Documented by User: Deisy Armstrong NP 05/10/25 12:56 HPI - Anesthesia Eval Consult details Narrative: 50yo F for Upper Endoscopy Hx mandibular surgery PMFSH Active Problems Active Problems: All Active Problems Vitamin B1 deficiency (Acute) Vitamin B12 deficiency (Acute) Vitamin D deficiency (Acute) Anxiety (Acute) Depression (Acute) Asthma (Acute) Sleep apnea treated with continuous positive airway pressure (CPAP) (Acute) Hypothyroidism (Acute) GERD (gastroesophageal reflux disease) (Acute) Morbid obesity (Acute) Past Medical History Medical History Anxiety Depression Asthma Sleep apnea treated with continuous positive airway pressure (CPAP) Hypothyroidism GERD (gastroesophageal reflux disease) Morbid obesity Family History Family History Mother Diabetes Dementia Father Non Hodgkin's lymphoma Cancer Diabetes Hypertension Daughter No problems noted. Daughter No problems noted. Son No problems noted. Son No problems noted. Surgical History Surgical History Hx of colonoscopy History of hip surgery History of mandibular surgery Hx of section H/O foot surgery Social History Social History Alcohol intake: never Patient Tobacco Use Status: Never used Tobacco Meds Allergies Allergy/AdvReac Type Severity Reaction Status Date / Time Penicillins Allergy Mild hives Verified 03/15/25 12:54 Home Medications ?Medication ?Instructions ?Recorded ?Confirmed ?Last Taken ?Type albuterol sulfate 90 mcg/actuation inhalation 02/08/25 03/15/25 Unknown History aerosol inhaler cetirizine 10 mg capsule (Zyrtec) 10 mg PO DAILY PRN 02/08/25 03/15/25 Unknown History ipratropium 0.5 mg-albuterol 3 mg ml inhalation 02/08/25 03/15/25 Unknown History (2.5 mg base)/3 mL nebulization soln levonorgestrel 21 mcg/24 hr (up to intrauterine 02/08/25 03/15/25 Unknown History 8 years) 52 mg intrauterine device (Mirena) levothyroxine 50 mcg tablet mcg PO DAILY 02/08/25 03/15/25 Unknown History loperamide 2 mg tablet (Imodium 2 mg PO Q6H PRN 02/08/25 03/15/25 Unknown History A-D) sertraline 100 mg tablet mg PO 02/08/25 03/15/25 Unknown History Assessment and Plan Assessment Anesthesia Assessment: Chart Reviewed Documented by User: Lilia Jean-Baptiste MD 05/12/25 11:40 [facility] Past Medical History Medical History Anxiety Depression Asthma Sleep apnea treated with continuous positive airway pressure (CPAP) Hypothyroidism GERD (gastroesophageal reflux disease) Morbid obesity Family History Family History Mother Diabetes Dementia Father Non Hodgkin's lymphoma Cancer Diabetes Hypertension Daughter No problems noted. Daughter No problems noted. Son No problems noted. Son No problems noted. Surgical History Surgical History Hx of colonoscopy History of hip surgery History of mandibular surgery Hx of section H/O foot surgery History of Problems with Anesthesia: No Social History Social History Alcohol intake: never Patient Tobacco Use Status: Never used Tobacco Meds Allergies Allergy/AdvReac Type Severity Reaction Status Date / Time Penicillins Allergy Mild hives Verified 03/15/25 12:54 Home Medications ?Medication ?Instructions ?Recorded ?Confirmed ?Last Taken ?Type albuterol sulfate 90 mcg/actuation inhalation 02/08/25 03/15/25 Unknown History aerosol inhaler cetirizine 10 mg capsule (Zyrtec) 10 mg PO DAILY PRN 02/08/25 03/15/25 Unknown History ipratropium 0.5 mg-albuterol 3 mg ml inhalation 02/08/25 03/15/25 Unknown History (2.5 mg base)/3 mL nebulization soln levonorgestrel 21 mcg/24 hr (up to intrauterine 02/08/25 03/15/25 Unknown History 8 years) 52 mg intrauterine device (Mirena) levothyroxine 50 mcg tablet mcg PO DAILY 02/08/25 03/15/25 Unknown History loperamide 2 mg tablet (Imodium 2 mg PO Q6H PRN 02/08/25 03/15/25 Unknown History A-D) sertraline 100 mg tablet mg PO 02/08/25 03/15/25 Unknown History Exam Airway Mallampati Class: II TM Dist: >3cm Loose/Missing/Broken Teeth: No Heart: RRR Lungs: CTA Assessment and Plan Assessment Anesthesia Assessment: Anesthesia Plan Discussed Final Anesthetic Review History of Problems with Anesthesia: No NPO: Yes ASA Class: III Final Preanesthetic Review: Meds/Allgs Chart Reviewed, Consent Obtained/Reviewed and Anes Risks/Benef Reviewed Patient Risk: Intermediate Procedure Risk: Intermediate Anesthetic Plan Anesthetic Plan: MAC: Disposition: Standard PACU
[2025-05-12 10:57] VITALS: BMI 39.6
[2025-05-12 10:58] LABS: UPreg QC Valid YES; Urine Pregnancy NEGATIVE (NEGATIVE)
--- NOTE | 2025-05-12 11:02 | MHC.SHP ---
Pre-Procedural Eval Section A - 24 Hr Update-Section A only Date of Service: 05/12/25 The patient is an INPATIENT: No The patient has been examined within 24 hours of the surgical procedure. The History & Physical has been completed within 30 days and I have reviewed it.: Yes Section B - Complete if H&P > 30 days Chief Complaint: Morbid (severe) obesity due to excess calories Details of Present Illness: GERD Relevant Family History (Specify if Yes): No Relevant Social History: None Present Medications: None Medical History: No relevant PMH History of Previous Operations: No relevant previous surgery Allergies: Allergies Allergy/AdvReac Type Severity Reaction Status Date / Time Penicillins Allergy Mild hives Verified 03/15/25 12:54 Review of Systems Sugical H&P ROS: Negative: Constitution, Cardiovascular, Respiratory, Neurological, Psychiatric, Hem-Onc, Allergic/Immunologic, Gastrointestinal, Genitourinary, Musculoskeletal, Integumentary, Endocrine and Eyes/Ears/Nose/Throat Exam Surgical H&P Exam: Normal: HEENT, Normal: Heart, Normal: Lungs, Normal: Extremities, Normal: Abdomen, Normal: Skin and Normal: Neurological Plan Diagnosis/Plan: Unchanged (EGD to assess etiology of GERD. Risks of bleeding and perforation were discussed with the patient and she is in agreement with the plan.) I have reviewed the history and physical and performed a pertinent physical examination on my patient. No changes have occurred unless specified. Time Spent With Patient Time: Total time managing care of this patient today ____ minutes.
--- NOTE | 2025-05-12 11:07 | PM.OP ---
Brief Operative Note Date of Service: 05/12/25 Pre-op diagnosis: GERD Post-op diagnosis: same Procedure: PROCEDURE DATE: 05/12/2025 PREOPERATIVE DIAGNOSIS: GERD POSTOPERATIVE DIAGNOSIS: ?Same as above. 1) small hiatal hernia PROCEDURE: Aonwajim-dnalmq-dfuwqkagcabt with biopsies Surgeon: Rubina Weldon M.D.. Ph.D. Aircraft General Repair Mechanic: None ? Anesthesia: IV sedation Estimated blood loss: ?Minimal FINDINGS AND PROCEDURE: ? OPERATIVE INDICATIONS: ?The patient is a 50 year old female known to me who is interested in bariatric surgery. The patient has GERD. Based on this information I recommended an upper endoscopy to evaluate the patient's symptoms. Risks and complications of the surgery were discussed with the patient in advance particularly the possibility of perforation or bleeding that may require surgical intervention. The patient understood the risks and was in agreement with the plan. ? PROCEDURE: After informed consent was obtained by the patient, the patient was ?transferred to the Operating Room and was placed in the supine position.? After successful induction of IV sedation, a mouth block was inserted and the patient was placed in the left lateral decubitus position. An upper endoscopy was performed next, the oropharynx and esophagus appeared within the normal limits. There was a small 2cm hiatal hernia. The z-line was smooth. Two biopsies were obtained from the distal esophagus 2-3 cm proximal to the GE junction and two additional biopsies from the GE junction. The stomach was entered and it appeared to be of normal size. There was no gastritis. There was no stricture or ulcer. A biopsy was obtained from the gastric fundus and the antrum. No significant bleeding was noted from any of the biopsy sites. Retroflexion of the scope confirmed the presence of a small diaphragmatic hernia. The scope was then advanced into the duodenum which appeared to be normal as well. At that point the duodenum ?and the stomach were decompressed and the scope was withdrawn from the patient's mouth. The patient extubated and was transferred in stable condition to the Recovery Room for further care. I was present and performed all steps of the procedure. There were no residents to assist with this case. Bill Weldon M.D., Ph.D. Surgeon: Noel Weldon MD Anesthesia: MAC Was an Aircraft General Repair Mechanic used for this Procedure?: No Estimated blood loss (mL): 0 IV fluids (mL): 400 Urine output (mL): 0 (No Fletcher to record output) Pathology: other (1) antrum x1, 2) fundus x1, 3) GE junction x2, 4) distal esophagus x2) Condition: stable Disposition: PACU
[2025-05-12] MEDS: Lactated Ringers 1,000 ML 80 ML IVCONT (11:10)
[2025-05-12 11:30] VITALS: BP 125/73; PULSE 87; RESP 16; TEMP 36.1; O2SAT 100
[2025-05-12 11:45] VITALS: BP 121/75; PULSE 66; RESP 16; TEMP 36.9; O2SAT 99
== END 2025-05-12 12:14 | disposition home or self-care (01) ==
PROVIDERS: Nurse Practitioner; PCP Internal Medicine; Visit Provider Surgery
PROC: 0DJ08ZZ Inspection of Upper Intestinal Tract, Via Natural or Artificial Opening Endoscopic (ICD-10-PCS; CPT 43235; principal; 2025-05-12 12:50)
DX: K21.9 Gastro-esophageal reflux disease without esophagitis (principal); E66.01 Morbid (severe) obesity due to excess calories; Z68.41 Body mass index [BMI] 40.0-44.9, adult; K44.9 Diaphragmatic hernia without obstruction or gangrene; E03.9 Hypothyroidism, unspecified; G47.30 Sleep apnea, unspecified; F33.9 Major depressive disorder, recurrent, unspecified; F41.9 Anxiety disorder, unspecified; J45.909 Unspecified asthma, uncomplicated; Z79.51 Long term (current) use of inhaled steroids; Z79.899 Other long term (current) drug therapy; Z99.89 Dependence on other enabling machines and devices; Z88.0 Allergy status to penicillin; Z98.890 Other specified postprocedural states
CPT/HCPCS: 43239; 81025; 88305; 88313; 88342; J2003; J2704

== ENCOUNTER → 2025-05-12 10:28 | Outpatient (BNV) | payer OTHER, SELFPAY | PROVIDERS: PCP Internal Medicine; Visit Provider Surgery | DX: K44.9 Diaphragmatic hernia without obstruction or gangrene (principal) | CPT/HCPCS: 43239 ==

== ENCOUNTER 2025-05-26 09:33 | Outpatient (REF) | payer OTHER, SELFPAY ==
[2025-05-26 10:08] LABS: MANUAL DIFF FLAG NO
[2025-05-26 10:40] LABS: Basophils Percent Auto 0.8 % (0-2); Hematocrit 42.1 % (37.0-47.0); Hemoglobin 14.2 g/dl (12.0-16.0); Imm Gran Abs Auto 0.01 X10*3/uL (0.00-0.03); Imm Gran Pct Auto 0.3 % (0.0-0.4); Lymphocytes Absolute Auto 1.6 X10*3/uL (1.2-4.9); Lymphocytes Percent Auto 42.4 % (20-40); Mean Corpuscular HGB Conc 33.7 g/dl (31.0-35.0); Mean Corpuscular Volume 86.1 fL (80.0-98.0); Mean Platelet Volume 10.1 fL (9.4-12.3); Monocytes Absolute Auto 0.3 X10*3/uL (0.1-1.2); Monocytes Percent Auto 8.1 % (2-11); Neutrophils Absolute Auto 1.8 x10*3/uL (2.0-8.3); Neutrophils Percent Auto 47.4 % (45-73); Platelet Count 226 X10*3/uL (160-400); Red Blood Count 4.89 X10*6/uL (4.20-5.50); Red Cell Distribution Width 11.9 % (11.0-16.0); White Blood Count 3.8 X10*3/uL (4.8-10.8)
[2025-05-26 10:59] LABS: Estimated Average Glucose 103 mg/dL; Hemoglobin A1c % 5.2 % (<6.0); Total Hemoglobin (HGBA1C) 3822.2697 umol/L
[2025-05-26 11:02] LABS: Prothrombin Time 11.8 SEC (10.9-12.4)
[2025-05-26 11:05] LABS: Partial Thromboplastin Time 31.6 SEC (26.0-36.8)
[2025-05-26 11:17] LABS: Alanine Aminotransferase 37 U/L (0-31); Albumin Level 4.6 g/dL (3.5-5.0); Alkaline Phosphatase 82 U/L (39-117); Anion Gap 13 (12-20); Aspartate Amino Transferase 29 U/L (5-31); Bilirubin Total 0.7 mg/dL (0.0-1.0); Blood Urea Nitrogen 17 mg/dL (9-16); C Reactive Protein 0.57 mg/dL (< or = 0.50); Calcium 9.5 mg/dL (8.4-10.2); Carbon Dioxide 23 mmol/L (22-29); Chloride 106 mmol/L (96-108); Cholesterol 150 mg/dL (<200); Estimated Glomerular Filt Rate > 60; Glucose Random 77 mg/dL (60-115); HDL Cholesterol 35 mg/dL (>40); LDL Cholesterol Calculated 90 mg/dL (<100); Potassium 3.9 mmol/L (3.3-5.1); Sodium 138 mmol/L (135-145); Total Protein 7.7 g/dL (6.5-8.0); Triglycerides 126 mg/dL (<150)
[2025-05-26 11:51] LABS: Insulin 13 uU/mL (2-29); TSH reflex Free T4 1.93 uIU/mL (0.32-4.0)
== END 2025-05-26 09:34 | disposition home or self-care (01) ==
LOC: HO.LAB 09:33
PROVIDERS: PCP Internal Medicine; Visit Provider Surgery
DX: E66.812 Obesity, class 2 (principal); E66.01 Morbid (severe) obesity due to excess calories; Z68.38 Body mass index [BMI] 38.0-38.9, adult; J45.909 Unspecified asthma, uncomplicated; G47.30 Sleep apnea, unspecified; E03.9 Hypothyroidism, unspecified
CPT/HCPCS: 36415; 80053; 80061; 83036; 83525; 84443; 85025; 85610; 85730; 86140; 99212

== ENCOUNTER 2025-05-26 09:44 | Outpatient (AMB) | payer OTHER, SELFPAY ==
--- NOTE | 2025-05-26 20:09 | A.OFFVIS_ITS ---
VS Expanded 05/26/25 20:16 Height 5 ft 5 in Weight 233 lb 2 oz BMI 38.8 Body Fat % 51 Body Fat Mass 118.9 Fat Free Mass 114.2 Visceral Fat Rating 20 Body Water % 33.6 Body Water Mass 78.3 Basal Metabolic Rate/Score 1,487 Intake Visit Reasons: TV Pre Op LSG 06/02/25 Allergies Penicillins Allergy (Mild, Verified 05/26/25 20:17) hives Medication List - Last Reconciled 05/26/25 by Noel Weldon MD albuterol sulfate 90 mcg/actuation inhalation cetirizine (Zyrtec) 10 mg PO DAILY PRN cholecalciferol (vitamin D3) 125 mcg PO DAILY ipratropium-albuterol 0.5 mg-3 mg(2.5 mg base)/3 mL mL inhalation levonorgestrel (Mirena) intrauterine levothyroxine mcg PO DAILY loperamide (Imodium A-D) 2 mg PO Q6H PRN mecobalamin (vitamin B12) 1,000 mcg sublingual DAILY ondansetron 4 mg PO Q12H pantoprazole 40 mg PO DAILY polyethylene glycol 3350 17 grams PO DAILY sertraline mg PO sucralfate 10 mL PO BID thiamine HCl (vitamin B1) 100 mg PO DAILY tirzepatide (weight loss) (Zepbound) 2.5 mg (0.5 mL) subcut QWEEK tirzepatide (weight loss) (Zepbound) 5 mg (0.5 mL) subcut QWEEK tirzepatide (weight loss) (Zepbound) 7.5 mg (0.5 mL) subcut QWEEK HPI HPI TV Pre Op LSG 06/02/25: Details: Start time: 4pm, End time 4.30pm. I spent 25 minutes with the patient and 5 minutes to create the note. HPI Comments Details: Overall weight loss: 33.6lbs, or 12.6% TBWL PFSH Medical History Anxiety Depression Asthma Sleep apnea treated with continuous positive airway pressure (CPAP) Hypothyroidism GERD (gastroesophageal reflux disease) Morbid obesity Surgical History Hx of colonoscopy History of hip surgery History of mandibular surgery Hx of section H/O foot surgery Family History Mother Diabetes Dementia Father Non Hodgkin's lymphoma Cancer Diabetes Hypertension Daughter No problems noted. Daughter No problems noted. Son No problems noted. Son No problems noted. Social History Alcohol intake: never Patient Tobacco Use Status: Never used Tobacco Telehealth Telehealth Telehealth Platform: Telephone Location of provider rendering services: practice address Location of patient: address on file Patient Identification confirmed using: Name, : Yes Telehealth method: voice only Patient verbally consented to treatment: Yes Patient verbally consented to billing insurance company: Yes Patient informed of any privacy concerns related to visit: Yes Minutes spent on Phone/Video with Pt.: 30 Assessment & Plan Assessment & Plan (1) Obesity: Code(s): E66.9 - Obesity, unspecified Category: Medical Qualifiers: Obesity type: due to excess calories Obesity classification: adult class 2 (BMI 35 - 39.9) Serious obesity comorbidity presence: with serious comorbidity Body mass index: BMI 38.0-38.9 Qualified Code(s): E66.812 - Obesity, class 2; E66.01 - Morbid (severe) obesity due to excess calories; Z68.38 - Body mass index [BMI] 38.0-38.9, adult Plan: 1. Plan for lap sleeve gastrectomy including upper GI endoscopy. All tests has been completed and reviewed and the patient is cleared for the surgery. If diaphragmatic or ventral hernias are present at time of surgery, these will be repaired laparoscopically as well. The surgery does not replace the need to change your lifestlyle which is the cause of the obesity problem. The surgery provides the motivation to try again to change your lifestyle, it reduces the appetite and make the transition to a better lifestyle easier and doubles the amount of weight you would lose compared to doing the lifestyle change without the surgery. You will need to be on a liquid diet with protein shakes for 2 weeks before surgery to maximize weight loss and boost your nutritional status to recover better from surgery and also for the first two weeks after surgery to let the stomach heal before we introduce other foods. After the first 2 weeks we will introduce protein bars and soft foods like scrambled eggs, cottage cheese and yogurt and after the 6th week will introduce meat, fish and cooked vegetables in small amounts. Over time you should be able to eat everything in small amounts. Side effects like nausea, vomiting, heartburn or abdominal pain are not common in the practice unless you are not following in the practice. This operation requires lifetime commitment to following in our practice and communication with me. You will much less weight and experience side effects if you don?t communicate or not following in the practice. Complications are rare and in our practice is about 1/10 of the national average. However, you can develop bleeding that may require transfusion (hasn?t happened for year in the practice), you may from complications (we did not have any deaths in the practice) and infections. Infections are usually a result of breakdown in communication or not understanding or following directions correctly. They are difficult to treat, they can happen during the first 6 weeks, they may require to be in the hospital for weeks or even months, not being able to eat by mouth and you may have drains and surgeries to try and correct the issue. Other risks and complications include possible conversion to an open procedure, leaks, small bowel obstruction, blood clots, cardiac, or pulmonary complications, as director long term care complications such as ulcers, insufficient weight loss and vitamin deficiencies. So far she has proven to be an excellent communicator and very compliant with all our directions accomplishing a great weight loss. I believe that she is an excellent candidate and she is ready. 2. Preop prescriptions were provided and explained the purpose of each one. Need to be purchased preop. Start Pantoprazole now as you get it from the pharmacy, 1 pill per day. Sucralfate and Zofran are for after surgery as needed. 3. Bowel prep: please do 7 packets of Miralax mixing each one with a an 8oz glass of water, crystal light, gatorade zero, or propel on 05/30/25 and the same amount on 05/31/25. The Miralax you begin with one packet at a time in 8oz water or crystal light, gatorade zero, or propel as early in the day as you can and you do them back to back until you finish them. Continue the protein shakes during the bowel prep. 4. Needs to purchase 1oz medicine cups . 5. Needs to purchase Children's liquid Tylenol for postop pain control. 6. She needs to stop Zepbound as of today 05/24/25. Avoid aspirin, motrin, Advil, Aleve, Ibuprofen, Naproxyn. Tylenol is OK. 7. She needs to purchase the Celebrate multivitamins from the hospital's gift shop. 8. Will do basic preop blood work-up any day between tomorrow Saturday05/25/25 and Saturday05/28/25 fasting for 12 hours and is scheduled to see the Anesthesiologist prior to the day of surgery. 9. Importance of adherence to postop folllow-up and recommendations was underscored and she understands that. 10. Stop food and bars as of tomorrow and create an aggressive meal plan with only Celebrate Rebuild protein shakes using the [employer]. Please send me a screenshot of the meal you will create. 11. No soups, broths or V8 12. The patient's medical history has been reviewed and they are considered low risk for post op DVT and therefore DVT prophylaxis is not considered necessary. Travel after surgery was reviewed. The patient has not disclosed any travel plans during the first 30 days after surgery and they have been advised that within the first 30 days after surgery any bus, plane, train or car travel over 2 hours in duration is contraindicated due to the possibility of developing blood clots from immobility. Any travel, needs to include periods of ambulation of 10 minutes in duration every 2 hours. Patient was instructed to discuss any plans for travel during this period with their bariatric surgeon. 13. Use your CPAP daily and bring it to the hospital with your mask 14. Please take at the day of surgery the following medications: NONE 16. Stop any control pills and don't use them for one month after surgery 15. Absolutely no smoking or vaping, or marijuana until the surgery and for at least the first 4 weeks. Only nicotine patches are allowed. 16. Send me weight measurements again on Saturday06/01/25, the day of surgery before you go to the hospital. 17. Avoid any steroids by mouth for any reason. Let me know if someone prescribes them to you 18. These instructions supersede anything else you read in the handbook, anything you watched in videos or classes or you were told by any other provider. If there is any conflict, you follow the above instructions and nothing else.
[2025-05-26 20:16] VITALS: BMI 38.8
== END 2025-05-26 20:19 | disposition home or self-care (01) ==
LOC: HO.HBS 09:44
PROVIDERS: PCP Internal Medicine; Visit Provider Surgery
DX: E66.812 Obesity, class 2 (principal); E66.01 Morbid (severe) obesity due to excess calories; Z68.38 Body mass index [BMI] 38.0-38.9, adult
CPT/HCPCS: 99214

== ENCOUNTER 2025-06-01 08:15 | Day surgery (SDC) | payer OTHER, SELFPAY ==
[2025-05-31 10:33] VITALS: BMI 37.6
[2025-06-01] VITALS (10 sets, daily range): BP systolic 111–131; BP diastolic 58–78; PULSE 64–78; RESP 12–18; TEMP 36.1–36.9; O2SAT 2–100; BMI 37.6
[2025-06-01 08:25] LABS: UPreg QC Valid YES
[2025-06-01] MEDS: Lactated Ringers 1,000 ML 999 ML IV (08:44)
[2025-06-01] MEDS: Aprepitant 32 MG/4.4 ML VIAL IVPUSH (08:45)
--- NOTE | 2025-06-01 09:51 | MHC.SHP ---
Pre-Procedural Eval Section A - 24 Hr Update-Section A only Date of Service: 06/01/25 The patient is an INPATIENT: Yes The patient has been examined within 24 hours of the surgical procedure. The History & Physical has been completed within 30 days and I have reviewed it.: Yes Section B - Complete if H&P > 30 days Chief Complaint: OBESITY Relevant Family History (Specify if Yes): No Relevant Social History: None Present Medications: None Medical History: No relevant PMH History of Previous Operations: No relevant previous surgery Allergies: Allergies Allergy/AdvReac Type Severity Reaction Status Date / Time Penicillins Allergy Mild hives Verified 06/01/25 08:48 Review of Systems Sugical H&P ROS: Negative: Constitution, Cardiovascular, Respiratory, Neurological, Psychiatric, Hem-Onc, Allergic/Immunologic, Gastrointestinal, Genitourinary, Musculoskeletal, Integumentary, Endocrine and Eyes/Ears/Nose/Throat Exam Surgical H&P Exam: Normal: HEENT, Normal: Heart, Normal: Lungs, Normal: Extremities, Normal: Abdomen, Normal: Skin and Normal: Neurological Plan Diagnosis/Plan: Unchanged I have reviewed the history and physical and performed a pertinent physical examination on my patient. No changes have occurred unless specified. Time Spent With Patient Time: Total time managing care of this patient today ____ minutes.
--- NOTE | 2025-06-01 09:51 | PM.OP ---
Brief Operative Note Date of Service: 06/01/25 Pre-op diagnosis: Severe obesity with comorbidities Post-op diagnosis: same (& paraesophageal lipoma) Procedure: INITIAL PATIENT BMI ON PRESENTATION AT OUR OFFICE: 44 kg/m2 LAST BMI BEFORE SURGERY: 38.9 kg/m2 COMORBIDITIES: sleep apnea on CPAP, asthma, hypothyroidism, IBS, depression, anxiety, GERD, liver fibrosis ?The patient presented to the Weight Management Program with significant obesity that was negatively impacting the patient's comorbidities as listed above.? The program is a phased program with a special focus on preoperative medical weight management to promote substantial weight loss and prepare the patients for the second phase of the program: bariatric surgery. The patient participated in an intensive weekly lifestyle ?intervention and exercise program during which the patient ?has lost between the initial office visit and the last preoperative visit 33.6 lbs, or 12.6% of initial actual body weight. It was deemed appropriate for the patient to now have bariatric surgery. In light of the current Covid-19 pandemic and the well documented strong association of obesity and increased risk of worse outcomes if infected with Covid-19 (REFERENCES:https://pubmed.ncbi.nlm.nih.gov/39880394/,?https://pubmed.ncbi.nlm.nih.gov/08690504/), any delay in undergoing bariatric surgery may lead to the patient's worsening health condition and increased?risk of more severe Covid-19 disease if infected. In addition a recent?study from [facility] published in [facility] on 11/27/2021 ([email or web address]) found that, among patients with obesity, substantial weight loss achieved with surgery was associated with improved outcomes of COVID-19 infection. The findings suggest that obesity can be a modifiable risk factor for the severity of COVID-19 infection. In addition, the patient met the BMI-criteria for bariatric surgery based on the BMI on initial presentation. The patient should not be penalized for achieving such weight loss because ?it is not sustainable long-term without surgical intervention and it was achieved in preparation for bariatric surgery ?under my direction and based on my published research ([email or web address]).[email or web address] and?https://www.soard.org/article/[email or web address](23)56430-X/pdf) ?that a 10% preoperative weight loss improves long-term weight loss after surgery and reduces perioperative complications.? Insurance carriers such as [facility] have endorsed my recommendations ?and have included in their policies criteria to include a 10% preoperative weight loss requirement. PROCEDURE: Esophago-gastroscopy, laparoscopic excision of para-esophageal lipoma, laparoscopic lysis of adhesions, laparoscopic sleeve gastrectomy and laparoscopic gastropexy INDICATIONS: This is a 50 year-old female who was electively scheduled for laparoscopic, possibly open sleeve gastrectomy. The risks and complications of the procedure were discussed with the patient in advance, particularly the possibility of ; pulmonary embolism; staple line leak; bleeding; GERD; cardiac, pulmonary, or renal complications; as well as long-term problems such as insufficient weight loss, vitamin deficiency, strictures, or ulcers. The patient understood all the risks, and was in agreement to proceed with surgery. DESCRIPTION OF PROCEDURE: After informed consent was obtained from the patient, the patient was given preoperative antibiotics, and was transferred to the operating room. After successful induction of general anesthesia, pneumatic compression devices were placed on both lower extremities. An upper endoscopy was performed next. The oropharynx and esophagus appeared to be within normal limits. There was no diaphragmatic hernia present. The stomach was entered. Then after all fluid and air were suctioned and the stomach was fully decompressed, the scope was withdrawn and secured in the mid esophagus. The patient was then prepped and draped in the usual sterile manner, and abdominal access was established at the right upper quadrant with the Molly technique. A 12 mm blunt port was inserted, and the abdomen was insufflated with CO2 to a pressure of 15 mmHg. Under direct visualization, additional ports were placed, specifically two 5 mm Versi-step ports to the left upper quadrant, and a 5 mm Versi-Step port to the right upper quadrant. 1% lidocaine plain was used to infiltrate all port sites as well as all fascia defects. There were adhesions in the abdomen from previous involving the omentum and the left anterior abdominal wall. Those were lysed completely with the ultrasonic device. Following that, the patient was placed in a steep reverse Trendelenburg position. An additional 5 mm port was placed to the right flank for the Mediflex retractor that was used to retract the left lobe of the liver. The gastro-esophageal fat pad was opened with the ultrasonic device (Thunderbeat, Olympus) and the anterior esophagus and hiatus were exposed. The angle of His was opened with the ultrasonic device the fundus of the stomach from any diaphragmatic and splenic attachments. I then opened the gastrocolic ligament between the transverse colon and the greater curvature of the stomach with the ultrasonic device to enter the lesser sac and facilitate the ligation of the short gastric vessels. I started at a mid-point along the greater curvature and using the Thunderbeat, all short gastric vessels were divided all the way to the angle of His until the left tamir was completely dissected at its entirety. I then divided the gastro-colic ligament distally to a distance of about 3-4 cm proximal to the pylorus. Near the esophagus, there was a large paraesophageal lipoma that was densely adherent under the esophagus. This was mobilized and fully resected. ? The stomach was then divided transversely with one Endo ADRI-45 purple and four ADRI-60 articulating purple loads using the SIGNIA stapler and loads. Every effort was made that the gastric sleeve had a tubular shape and an even caliber throughout. Once the sleeve resection was completed, the staple line of the gastric sleeve was reinforced with Hemoclips. The resected stomach was retrieved without difficulty from the Molly port. A gastropexy was then performed in order to prevent postoperative GERD and partial gastric volvulus. Several interrupted 2.0 Surgidac sutures were placed between the sleeve's staple line and the previously divided greater omentum and gastro-colic ligament using the Endo-Stitch device. ?An upper endoscopy was performed. There was no narrowing at the GE junction. The scope was easily advanced all the way to the pylorus which was clearly visualized. There was no narrowing anywhere and the sleeve's caliber was even throughout. The sleeve's staple line was inspected and there was no evidence of ischemia, bleeding or dehiscence. At that point the gastroscope was withdrawn from the patient?s mouth while we were decompressing the bowel and the stomach from any remaining air. I looked into the lesser sac to see how the sleeve was situating and it was situating well. There was no bleeding from the staple line, spleen, or short gastric vessels. The Mediflex retractor was removed, and the undersurface of the liver was inspected and there was no bleeding. The patient was placed in supine position. I closed the fascial defect of the 12 mm port site with a figure of eight #1 Polysorb suture. Then 30cc Ropivacaine plain with 10 mg of Dexamethasone were used to infiltrate the fascial closure as well as all skin incisions. At this point, the abdomen was deflated, all ports were removed under direct vision, and no bleeding was noted from any of the port sites. The skin incisions were irrigated with saline and were closed with 4-0 absorbable monofilament sutures. Steri-Strips and OpSites were used to cover all incisions. The patient was extubated and was transferred in stable condition to the recovery room for further care. I was present and performed all sanchez parts of the procedure. Mr. Licea was the personal injury legal assistant. There were no residents to assist with this case. Bill Weldon MD, PhD, FACS Surgeon: Noel Weldon MD Anesthesia: GETA, local and other (TAP block) Was an Canvas Worker used for this Procedure?: No Canvas Worker: Josep Licea Estimated blood loss (mL): 10 IV fluids (mL): 2,000 Urine output (mL): 0 (No Fletcher to record output) Pathology: other (1) Stomach, 2) Paraesophageal lipoma, 3) Gastro-esophageal lipoma) Condition: stable Disposition: PACU
--- NOTE | 2025-06-01 09:56 | P.PNGS_ITS ---
Subjective Subjective Date of Service: 06/02/25 Interval history: Feels well. Mild incisional pain. She is tolerating phase 1 bariatric diet Physical Exam 2 Vital Signs: Vital Signs: Last Vital Signs Temp 98.0 F 06/01/25 08:25 Pulse 75 06/01/25 08:25 Resp 14 06/01/25 08:25 BP 111/78 06/01/25 08:25 Pulse Ox 96 06/01/25 08:25 O2 Del Method Room Air 06/01/25 08:25 BMI result Body Mass Index 37.6 GI: Inspection: Yes normal to inspection, Yes incision (clean, dry and intact) and Yes obesity Palpation (GI): Soft to palpation Extrem: Right lower extremity: normal to inspection (no calf tenderness) L eft lower extremity: normal to inspection (no calf tenderness) Objective Data Active Medications Albuterol Sulfate (Albuterol Sulfate (0.083%) 2.5 Mg/3 Ml Vial.Neb) 2.5 mg INHALE ONCE PRN PRN Reason: Shortness of Breath/Wheezing Lactated Ringer's (Lr) 1,000 mls @ 100 mls/hr IVCONT .Q10H KYLEE Stop: 06/01/25 11:14 Lactated Ringer's (Lr) 1,000 mls @ 999 mls/hr IV .Q1H1M KYLEE Stop: 06/01/25 10:15 Last Admin: 06/01/25 08:44 Dose: 999 mls/hr Documented By: LU Labs 06/02/25 05:37 06/02/25 05:37 Labs: Laboratory Results - last 24 hr 06/01/25 08:10 Urine Test NEGATIVE Procedures Date of Service Date of Service: 06/02/25 Progress Note: A&P Assessment and plan (1) Obesity: Status: Acute Assessment and Plan: s/p laparoscopic sleeve gastrectomy, lysis of adhesions, resection or paraesophageal lipoma and gastropexy Doing well Will check am labs and if OK the patient will be discharged home (2) BMI 38.0-38.9,adult: Status: Acute (3) Depression: Status: Acute (4) Anxiety: Status: Acute (5) Hypothyroidism: Status: Acute (6) GERD (gastroesophageal reflux disease): Status: Acute (7) Asthma: Status: Acute (8) Sleep apnea treated with continuous positive airway pressure (CPAP): Status: Acute (9) Liver fibrosis: Status: Acute (10) S/P laparoscopic sleeve gastrectomy: Status: Acute (11) Intra-abdominal adhesions: Status: Acute (12) Lipoma of stomach: Status: Acute Time Spent With Patient Time: Total time managing care of this patient today ____ minutes. Quality Stroke Does the patient have a stroke diagnosis?: No VTE Prior VTE?: No VTE Risk Level:: Surgical - moderate VTE Device Contraindication: N/A - Device Ordered VTE Drug Contraindication: Treatment Not Indicated
--- NOTE | 2025-06-01 10:00 | HO.ANESPROP2 ---
Documented by User: Deisy Armstrong NP 05/31/25 10:40 HPI - Anesthesia Eval Consult details Narrative: 50yo F for Gastrectomy Sleeve,EGD,possible Diaphragmatic Hernia,possible Ventral Hernia,possible Open BMI 38 Hx TMJ surgical repair age 18 - denies any issue with subsequent GA/intubation PMFSH Active Problems Active Problems: All Active Problems Obesity (Acute) BMI 38.0-38.9,adult (Acute) Vitamin B1 deficiency (Acute) Vitamin B12 deficiency (Acute) Vitamin D deficiency (Acute) Anxiety (Acute) Depression (Acute) Asthma (Acute) Sleep apnea treated with continuous positive airway pressure (CPAP) (Acute) Hypothyroidism (Acute) GERD (gastroesophageal reflux disease) (Acute) Morbid obesity (Acute) Past Medical History Medical History (Updated 06/01/25 @ 09:57 by Noel Weldon MD) Arthritis Anxiety Depression Asthma Sleep apnea treated with continuous positive airway pressure (CPAP) Hypothyroidism GERD (gastroesophageal reflux disease) Morbid obesity Family History Family History Mother Diabetes Dementia Father Non Hodgkin's lymphoma Cancer Diabetes Hypertension Daughter No problems noted. Daughter No problems noted. Son No problems noted. Son No problems noted. Surgical History Surgical History History of esophagogastroduodenoscopy (EGD) Hx of colonoscopy History of hip surgery History of mandibular surgery Hx of section H/O foot surgery History of Problems with Anesthesia: No Social History Social History Are you a primary respiratory care instructor to a significant other at home: No Do you presently have visiting nurse or other home services: No Alcohol intake: never Patient Tobacco Use Status: Never used Tobacco Use of substances other than those prescribed or required for medical reasons: No Have you been hit, kicked, punched, or otherwise hurt by someone within the past year? If so, by whom?: No Spiritual Healthcare Practices: no Rastafari Healthcare Practices: no Cultural Healthcare Practices: no Are you DNR?: No Advance Directives: No (states spouse is primary contact) Advance Directives Information Provided: Yes (as above noted) Advance Directives on File: No Patient : No FDLMP: n/a-has IUD Poor oral hygiene: No (one cap) Meds Allergies Allergy/AdvReac Type Severity Reaction Status Date / Time Penicillins Allergy Mild hives Verified 06/01/25 08:48 Home Medications ?Medication ?Instructions ?Recorded ?Confirmed ?Last Taken ?Type albuterol sulfate 90 mcg/actuation 2 inh inhalation Q4H PRN Shortness 02/08/25 05/31/25 Unknown History aerosol inhaler Of Breath Or Wheezing cetirizine 10 mg capsule (Zyrtec) 10 mg PO DAILY PRN allergies 02/08/25 05/31/25 Unknown History ipratropium 0.5 mg-albuterol 3 mg 3 ml inhalation Q4H PRN Shortness 02/08/25 05/31/25 Unknown History (2.5 mg base)/3 mL nebulization Of Breath Or Wheezing soln levonorgestrel 21 mcg/24 hr (up to 1 device intrauterine ONCE 02/08/25 05/31/25 Unknown History 8 years) 52 mg intrauterine device (Mirena) levothyroxine 50 mcg tablet 50 mcg PO DAILY 02/08/25 05/31/25 Unknown History loperamide 2 mg tablet (Imodium 2 mg PO Q6H PRN loose stools 02/08/25 05/31/25 Unknown History A-D) sertraline 100 mg tablet 150 mg PO DAILY 02/08/25 05/31/25 Unknown History fluticasone propionate 50 1 spray intranasal DAILY 05/31/25 05/31/25 Unknown History mcg/actuation nasal spray,suspension multivitamin 1 tab PO DAILY 05/31/25 05/31/25 Unknown History Exam Pertinent Lab Results Pertinent Lab Results: Laboratory Tests 05/26/25 10:00 WBC 3.8 L Hgb 14.2 Hct 42.1 Plt Count 226 Sodium 138 Potassium 3.9 Chloride 106 Carbon Dioxide 23 BUN 17 H Creatinine 0.86 Narrative Narrative: EKG 03/2025 Vent. Rate : 70 BPM Atrial Rate : 70 BPM P-R Int : 134 ms QRS Dur : 84 ms QT Int : 420 ms P-R-T Axes : 5 18 32 degrees QTcB Int : 453 ms Normal sinus rhythm Normal ECG No previous ECGs available Assessment and Plan Assessment Anesthesia Assessment: Chart Reviewed Final Anesthetic Review History of Problems with Anesthesia: No Documented by User: Genevieve Whittaker DO 06/01/25 10:34 [facility] Past Medical History Medical History (Updated 06/01/25 @ 09:57 by Noel Weldon MD) Arthritis Anxiety Depression Asthma Sleep apnea treated with continuous positive airway pressure (CPAP) Hypothyroidism GERD (gastroesophageal reflux disease) Morbid obesity Family History Family History Mother Diabetes Dementia Father Non Hodgkin's lymphoma Cancer Diabetes Hypertension Daughter No problems noted. Daughter No problems noted. Son No problems noted. Son No problems noted. Family history of problems with anesthesia: No Surgical History Surgical History History of esophagogastroduodenoscopy (EGD) Hx of colonoscopy History of hip surgery History of mandibular surgery Hx of section H/O foot surgery History of Problems with Anesthesia: No Social History Social History Are you a primary respiratory care instructor to a significant other at home: No Do you presently have visiting nurse or other home services: No Alcohol intake: never Patient Tobacco Use Status: Never used Tobacco Use of substances other than those prescribed or required for medical reasons: No Have you been hit, kicked, punched, or otherwise hurt by someone within the past year? If so, by whom?: No Spiritual Healthcare Practices: no Rastafari Healthcare Practices: no Cultural Healthcare Practices: no Are you DNR?: No Advance Directives: No (states spouse is primary contact) Advance Directives Information Provided: Yes (as above noted) Advance Directives on File: No Patient : No FDLMP: n/a-has IUD Poor oral hygiene: No (one cap) Meds Allergies Allergy/AdvReac Type Severity Reaction Status Date / Time Penicillins Allergy Mild hives Verified 06/01/25 08:48 Home Medications ?Medication ?Instructions ?Recorded ?Confirmed ?Last Taken ?Type albuterol sulfate 90 mcg/actuation 2 inh inhalation Q4H PRN Shortness 02/08/25 05/31/25 Unknown History aerosol inhaler Of Breath Or Wheezing cetirizine 10 mg capsule (Zyrtec) 10 mg PO DAILY PRN allergies 02/08/25 05/31/25 Unknown History ipratropium 0.5 mg-albuterol 3 mg 3 ml inhalation Q4H PRN Shortness 02/08/25 05/31/25 Unknown History (2.5 mg base)/3 mL nebulization Of Breath Or Wheezing soln levonorgestrel 21 mcg/24 hr (up to 1 device intrauterine ONCE 02/08/25 05/31/25 Unknown History 8 years) 52 mg intrauterine device (Mirena) levothyroxine 50 mcg tablet 50 mcg PO DAILY 02/08/25 05/31/25 Unknown History loperamide 2 mg tablet (Imodium 2 mg PO Q6H PRN loose stools 02/08/25 05/31/25 Unknown History A-D) sertraline 100 mg tablet 150 mg PO DAILY 02/08/25 05/31/25 Unknown History fluticasone propionate 50 1 spray intranasal DAILY 05/31/25 05/31/25 Unknown History mcg/actuation nasal spray,suspension multivitamin 1 tab PO DAILY 05/31/25 05/31/25 Unknown History Exam Exam Date and Time: 06/01/25 1000 Height,Weight and Vital Signs: Height 5 ft 5 in Weight 102.421 kg Vital Signs Temperature 98.0 F 06/01/25 08:25 Pulse Rate 75 06/01/25 08:25 Respiratory Rate 14 06/01/25 08:25 Blood Pressure 111/78 06/01/25 08:25 Pulse Oximetry 96 06/01/25 08:25 Oxygen Delivery Method Room Air 06/01/25 08:25 Temperature 98.0 F 06/01/25 08:25 Pulse Rate 75 06/01/25 08:25 Respiratory Rate 14 06/01/25 08:25 Blood Pressure 111/78 06/01/25 08:25 Pulse Oximetry 96 06/01/25 08:25 Oxygen Delivery Method Room Air 06/01/25 08:25 Airway Mallampati Class: III TM Dist: <=3cm Neck ROM: Full Loose/Missing/Broken Teeth: No (patient denies any loose or broken teeth) Heart: S1S2 Lungs: CTAB Assessment and Plan Assessment Anesthesia Assessment: Anesthesia Plan Discussed Final Anesthetic Review Family History of Problems with Anesthesia: No History of Problems with Anesthesia: No NPO: Yes ASA Class: II Final Preanesthetic Review: No Changes in Pt Med Stat, Meds/Allgs Chart Reviewed, Consent Obtained/Reviewed and Anes Risks/Benef Reviewed Patient Risk: Intermediate Procedure Risk: Intermediate Anesthetic Plan Anesthetic Plan: GA and Agree w/ Assess. and Plan Disposition: Standard PACU
[2025-06-01] MEDS: Lactated Ringers 1,000 ML 100 ML IVCONT ×3 (10:07→22:49)
--- NOTE | 2025-06-01 12:00 | PM.DS ---
DS: Providers Provider Date of Service: 06/02/25 Date of discharge: 06/02/25 Primary care physician: Kody Chong DO, MD DS: Diagnosis Discharge Diagnosis (1) Obesity: Status: Acute (2) BMI 38.0-38.9,adult: Status: Acute (3) Depression: Status: Acute (4) Anxiety: Status: Acute (5) Hypothyroidism: Status: Acute (6) GERD (gastroesophageal reflux disease): Status: Acute (7) Asthma: Status: Acute (8) Sleep apnea treated with continuous positive airway pressure (CPAP): Status: Acute (9) Liver fibrosis: Status: Acute DS: Summary Hospital Course Hospital Course: ADMITTING DIAGNOSIS: obesity, anxiety, depression, brent, hypothyroid, gerd ? DISCHARGE DIAGNOSIS: same, s/p laparoscopic sleeve gastrectomy ? PAST SURGICAL HISTORY: cesarian section, hip and mandible surgery ? PROCEDURE: upper endoscopy, laparoscopic sleeve gastrectomy ? DISCHARGE SUMMARY: ? History of Present Illness: ? The patient is a?50 year-old woman with a BMI of?44.3 kg/m2 and associated co-morbidities as described above. The patient had extensive work-up,lost?41 lbs preoperatively and was electively scheduled for laparoscopic, possible open sleeve gastrectomy and gastropexy. Risks and complications of the surgery were discussed with the patient in advance, particularly the possibility of , pulmonary embolism, anastomotic leak, bleeding, bowel injury, GERD, cardiac, renal or pulmonary complications. The patient understood all the risks and was in agreement with the surgical plan. ? Hospital Course: ? The patient underwent an uneventful laparoscopic sleeve gastrectomy with gastropexy on the day of admission. Postoperatively, the patient was transferred to the surgical floor. The patient received IV Acetaminophen and IV dilaudid for pain control. Patient was started on bariatric phase 1 diet POD #0. On postoperative day one, the patient was feeling well without nausea, vomiting, fevers, or tachycardia. The patient had some mild incisional pain and the abdomen was soft. ? On the morning of postoperative day one, the patient was continued on 1 ounce of water or ice every half hour. During the day, the patient did fairly well, having some incisional pain, but able to ambulate adequately and to tolerate liquids well. ? Since the patient is doing well, we decided that the patient was ready to be discharged. The patient was given instructions to follow-up with me next week and to call my office for any fever over 101, persistent abdominal pain, nausea, vomiting, GERD, symptoms of DVT such as calf tenderness, or leg swelling, or pulmonary embolism such as chest pain or shortness of breath. The patient was also instructed to drink 40-60 ounces of liquids per day using the 1-ounce cups. The patient had been given prescriptions for Tylenol for pain, Zofran prn for nausea, and pantoprazole and carafate previously. The patient was encouraged to ambulate and use the incentive spirometer. The patient was allowed to shower, but no baths, and encouraged to stay active at home. All of these instructions were given to the patient personally. All questions were answered and the patient understood all instructions, the instructions were also given to the patient in print. Time Attestation Total time managing care of this patient today: 25 mintues. Discharge Coordination Time (in mins): 25 Quality: Safe Use of Opioids Does Pt have an Active Cancer Diagnosis on the Problem List?: No Quality: Stroke Does the patient have a stroke diagnosis?: No Physical Exam Vital Signs: Vital Signs: Last Vital Signs Temp 98.5 F 06/01/25 11:55 Pulse 71 06/01/25 11:55 Resp 12 06/01/25 11:55 BP 115/62 06/01/25 11:55 Pulse Ox 99 06/01/25 11:55 O2 Del Method Simple Mask 06/01/25 11:55 O2 Flow Rate 6 06/01/25 11:55 BMI result Body Mass Index 37.6 DS: Data Data Completed and Pending Pending studies at discharge: Pending at discharge 06/01/25 10:57 Surgical [PTH] Routine 06/01/25 11:42 Surgical [PTH] Routine Labs on day of discharge: Laboratory Results - last 24 hr 06/01/25 06/01/25 08:10 09:22 Urine Test NEGATIVE Blood Type A Positive Antibody Screen NEGATIVE Discharge Plan Discharge Patient Disposition: Home, Self-Care Referrals: Kody Chong DO, MD [Primary Care Provider, Internal Medicine] - 1 Week Discharge Medications: Continued fluticasone propionate 50 mcg/actuation [place],Suspension 1 spray INTRANASAL DAILY PRN (Reason: Nasal Congestion) Rx Instructions: administer into each nostril pantoprazole 40 mg tablet,delayed release (DR/EC) 40 mg PO DAILY levothyroxine 50 mcg tablet 50 mcg PO DAILY sertraline 100 mg tablet 150 mg PO DAILY Patient Comments: 150mg/d albuterol sulfate 90 mcg/actuation HFA aerosol inhaler 2 inh inhalation Q4H PRN (Reason: Shortness Of Breath Or Wheezing) ipratropium-albuterol 0.5 mg-3 mg(2.5 mg base)/3 mL solution for nebulization 3 ml inhalation Q4H PRN (Reason: Shortness Of Breath Or Wheezing) Mirena 21 mcg/24hr (up to 8 yrs) 52 mg intrauterine device 1 device intrauterine ONCE Zyrtec 10 mg capsule 10 mg PO DAILY PRN (Reason: allergies) Held cholecalciferol (vitamin D3) 125 mcg (5,000 unit) capsule 125 mcg PO DAILY Qty: 90 0RF Hold Instructions: Resume on 06/16/25. mecobalamin (vitamin B12) 1,000 mcg tablet,disintegrating 1,000 mcg sublingual DAILY Qty: 90 0RF Hold Instructions: Resume on 06/16/25. Rx Instructions: place tablet under tongue and allow to dissolve for at least30 secs before swallowing thiamine HCl (vitamin B1) 100 mg tablet 100 mg PO DAILY Qty: 90 0RF Hold Instructions: Resume on 06/16/25. multivitamin Tablet 1 tab PO DAILY Hold Instructions: Resume on 06/16/25. Discontinued Zepbound 5 mg/0.5 mL pen injector 5 mg subcut QWEEK Qty: 2 0RF Zepbound 7.5 mg/0.5 mL pen injector 7.5 mg subcut QWEEK Qty: 2 0RF polyethylene glycol 3350 17 gram/dose powder 17 g PO DAILY Qty: 238 0RF Rx Instructions: Mix each measuring cup with 8oz of water, Crystal light, or Gatorade zero, or Propel and do 7 measuring cups on 05/30/25 and another 7 measuring cups on 05/31/25 loperamide [Imodium A-D] 2 mg tablet 2 mg PO Q6H PRN (Reason: loose stools) Zepbound 2.5 mg/0.5 mL pen injector 2.5 mg subcut QWEEK Qty: 2 0RF Rx Instructions: for 4 weeks Discharge Orders: Discharge Order (Routine); Ordered 06/02/25 Ordered By: Noel Weldon Activity on Discharge: No heavy lifting Activity Restrictions/Additional Instructions: No tub baths, sex or returning to work until discussed at first post op appointment. No exercise, alcohol, tobacco or illegal drug use. Continue to use incentive spirometer hourly while awake. Walk in home for 5- 10 minutes every 2 hours during the first week. Follow all instructions in the bariatric handbook and call with any questions.Discharge Instructions 1. Please call your doctor or come back to the emergency room should any new symptoms arise. 2. You will receive a courtesy call from [facility] 24-48 hours after discharge. 3. Activity: abstain from alcohol, practice limited stair climbing, no bending, no driving, no exercise, no illicit substances, no lifting, no sex, no tub bath, no work. 4. Diet: continue as discussed with Dr. Weldon. 5. Dressing Change/Wound Care: Your incision is covered by clear bandages and guaze underneath. If the area is tender, you may apply an ice pack for short intervals (no more than 20 minutes on, followed by at least 20 minutes off). Do not apply heat. Do not use creams, lotions, or topical antibiotics unless instructed to do so by your surgeon. These can cause infection or allergic reaction. 6. Call your doctor if: - Your temperature exceeds 101.5 F - You experience excessive pain or swelling - You have an unexpected reaction to medication - You have excessive bleeding - You experience continued vomiting/nausea - Your incision begins to separate - Your incision shows signs of infection such as increased redness, swelling, excessive pain, heat, or drainage (light blood or clear fluid is normal) 7. General instructions: No lifting greater than 5 lbs for 1 week and not more than 20lbs the next 3?weeks. No driving until seen at the office in 5-7 days after surgery. If you do not move your bowels in the next 2 days, please tell?Dr. Weldon. Please walk around your home every hour or two to prevent blood clots from forming in your legs. You do not need to wake from sleeping to walk. Please sleep in a bed or couch to prevent kinking at the hips and knees. Please take your incentive spirometer (your lung drier attendant) home with you and use it for the next few days to prevent pneumonia. You may shower, no hot tubs, baths or swimming pools.?Please follow the post op diet instructions you are?given by Dr Weldon? and text me daily at 5-6pm for an update.?If you have any issues or concerns or questions please communicate this to him via text.? The Celebrate shakes have all of the bariatric vitamins you need if you consume these shakes. If you are drinking other protein shakes, you will need to purchase the Celebrate multivitamins and calcium that are available in the hospital gift shop on the first floor of the [facility].??Do not take anything without first discussing with Dr Weldon. Please make sure you are consuming at least 40 ounces of fluids per day starting the?day AFTER your discharge from the hospital. Always drink 1-2 ml per minute using the 5ml?syringe. If you drink faster you may experience?bloating,?gas pain, burping, nausea or heartburn. In that case please slow down your pace and use the syringe to?understand better the?proper?pace and volume of drinking. Do not hesitate to contact the office with any questions at . The patient's medical history has been reviewed and they are considered low risk for post op DVT and therefore DVT prophylaxis is not considered necessary. Travel after surgery was reviewed. The patient has not disclosed any travel plans during the first 30 days after surgery and they have been advised that within the first 30 days after surgery any bus, plane, train or car travel over 2 hours in duration is contraindicated due to the possibility of developing blood clots from immobility. Any travel, needs to include periods of ambulation of 10 minutes in duration every 2 hours.? The patient was instructed to discuss any plans for travel during this period with their bariatric surgeon. Print Language: [place] Discharge Date/Time: 06/02/25 09:55
[2025-06-01 12:40] LABS: Hematocrit 38.3 % (37.0-47.0); Hemoglobin 12.8 g/dl (12.0-16.0)
[2025-06-01 12:52] LABS: Anion Gap 13 (12-20); Blood Urea Nitrogen 14 mg/dL (9-16); Calcium 8.2 mg/dL (8.4-10.2); Carbon Dioxide 23 mmol/L (22-29); Chloride 107 mmol/L (96-108); Creatinine Clr Calc Pharmacy 99.5; Estimated Glomerular Filt Rate > 60; Potassium 4.0 mmol/L (3.3-5.1); Sodium 139 mmol/L (135-145)
--- NOTE | 2025-06-01 14:38 | PHA.MEDREC ---
Addendum entered by Josep Flores [facility] 06/01/25 17:19: med rec reviewed Addendum entered by Roland Goodson 06/01/25 17:11: Was able to speak with pt, when she was more alert, and pt was able to confirm her OTC medications and that she just picked up Childrens Tylenol that she is going to be starting when she gets home from today. Pt also confirmed she was taking Zepbound but stopped it 2 Fridays ago (05/21) and is waiting to meet with Dr. Weldon to see if she is going to start it again. Pt confirmed she last took her medications yesterday. Addendum entered by Joesph Liriano [facility] 06/01/25 14:49: MED REC REVIEWED BY [facility] Original Note: Pharmacy Consult ? Medication Reconciliation Pharmacy has completed the medication reconciliation. Spoke with pt daughter at bedside and she was able to confirm the pt medications except for her OTC vitamins and the last time she took her medications; will follow back later to confirm her vitamins and the last time she took her medicine. Pt daughter confirmed her mother got Pantoprazole, Sucralfate and Ondansetron to start after she gets home from this surgery.
[2025-06-02 03:13] VITALS: BP 113/57; PULSE 74; RESP 18; TEMP 36.7; O2SAT 96
[2025-06-02 06:12] LABS: MANUAL DIFF FLAG NO
[2025-06-02 06:18] LABS: Hematocrit 35.1 % (37.0-47.0); Hemoglobin 12.2 g/dl (12.0-16.0); Imm Gran Abs Auto 0.04 X10*3/uL (0.00-0.03); Imm Gran Pct Auto 0.5 % (0.0-0.4); Lymphocytes Absolute Auto 1.1 X10*3/uL (1.2-4.9); Mean Corpuscular HGB Conc 34.8 g/dl (31.0-35.0); Mean Corpuscular Hemoglobin 29.8 pg (27.0-33.0); Mean Corpuscular Volume 85.6 fL (80.0-98.0); NRBC Abs Auto 0.000 X10*3/uL (0.0-0.012); NRBC Pct Auto 0.0 /100WBC (0.0-0.2); Platelet Count 200 X10*3/uL (160-400); Red Blood Count 4.10 X10*6/uL (4.20-5.50); White Blood Count 7.7 X10*3/uL (4.8-10.8)
[2025-06-02 06:44] LABS: Anion Gap 13 (12-20); Blood Urea Nitrogen 9 mg/dL (9-16); Calcium 8.4 mg/dL (8.4-10.2); Carbon Dioxide 23 mmol/L (22-29); Chloride 107 mmol/L (96-108); Creatinine Clr Calc Pharmacy 123.7; Estimated Glomerular Filt Rate > 60; Potassium 4.0 mmol/L (3.3-5.1); Sodium 139 mmol/L (135-145)
[2025-06-02 07:37] VITALS: BP 123/73; PULSE 70; RESP 18; TEMP 36.6; O2SAT 95
--- NOTE | 2025-06-02 09:14 | PC.NURSE ---
Pt for discharge to home . reviewed activity restrictions suture line care need for follow up visit and reasons and concerns to call MD . Pt accepting of discharge to home and receptive to teaching .
--- NOTE | 2025-06-02 10:14 | HO.POSTANES ---
Post Anesthesia Evaluation Post Anesthesia Evaluation Date of Service: 06/01/25 Vital Signs: Vital Signs Temp Pulse Resp BP Pulse Ox O2 Del Method 06/02/25 07:37 97.9 F 70 18 123/73 95 Room Air 06/02/25 03:13 98.1 F 74 18 113/57 L 96 CPAP 06/01/25 23:07 98.0 F 73 18 131/69 98 CPAP Anesthesia: General Endotracheal-GETA Mental Status: Awake Pain Control: Satisfactory Nausea/Vomiting: None Hydration: Adequate Anesthesia-Related Issues: No Anes. Related Issues
--- NOTE | 2025-06-02 12:10 | MHC.CM.PN ---
Pt self-care, lives at home with her and 2 children. Pt will transport her home at discharge, she will be discharging home today. PCP: Kody Chong
== END 2025-06-02 09:55 | disposition home or self-care (01) ==
LOC: HO.SSS 12:03 → HO.S3 12:14
PROVIDERS: Nurse Practitioner; Physician Assistant Surgical; PCP Internal Medicine; Visit Provider Surgery
PROC: (CPT 43845; principal; 2025-06-01 10:10)
DX: E66.01 Morbid (severe) obesity due to excess calories (principal); Z68.38 Body mass index [BMI] 38.0-38.9, adult; D17.5 Benign lipomatous neoplasm of intra-abdominal organs; K21.9 Gastro-esophageal reflux disease without esophagitis; K74.00 Hepatic fibrosis, unspecified; E03.9 Hypothyroidism, unspecified; J45.909 Unspecified asthma, uncomplicated; K58.9 Irritable bowel syndrome, unspecified; G47.33 Obstructive sleep apnea (adult) (pediatric); F32.A Depression, unspecified; F41.9 Anxiety disorder, unspecified; Z79.85 Long-term (current) use of injectable non-insulin antidiabetic drugs; Z79.899 Other long term (current) drug therapy; Z99.89 Dependence on other enabling machines and devices; Z88.0 Allergy status to penicillin; Z98.890 Other specified postprocedural states
CPT/HCPCS: 43775; 43659; 36415; 80048; 81025; 85014; 85018; 85025; 86850; 86900; 86901; 88304; 88305; 88307; 88342; A4649; C9145; J0131; J1100; J1171; J1630; J1956; J2003; J2250; J2371; J2405; J2470; J2704; J2795; J3010; J7120

== ENCOUNTER → 2025-06-01 08:15 | Outpatient (BNV) | payer OTHER, SELFPAY | PROVIDERS: PCP Internal Medicine; Visit Provider Surgery | DX: E66.812 Obesity, class 2 (principal); Z68.38 Body mass index [BMI] 38.0-38.9, adult; Z98.84 Bariatric surgery status; K66.0 Peritoneal adhesions (postprocedural) (postinfection); D17.5 Benign lipomatous neoplasm of intra-abdominal organs | CPT/HCPCS: 43659; 43775; 99024 ==

== ENCOUNTER 2025-06-08 12:26 | Outpatient (AMB) | payer OTHER, SELFPAY ==
--- NOTE | 2025-06-08 12:39 | A.OFFVIS_ITS ---
VS Expanded 06/08/25 13:27 BP 140/63 H Blood Pressure Location Rt brachial Blood Pressure Position Sitting Pulse 70 Pulse Source Pulse Oximeter Temp 98.5 F Temperature Source Temporal Artery Scan Pulse Oximetry 97 Oxygen Delivery Method Room Air Height 5 ft 5 in Weight 216 lb 3.2 oz BMI 36.0 Body Fat % 43.2 Body Fat Mass 93.2 Fat Free Mass 122.8 Visceral Fat Rating 11.0 Body Water % 40.5 Body Water Mass 87.6 Muscle Mass/Score 116.6 Basal Metabolic Rate/Score 1,711 Intake Visit Reasons: (OV) PO LSG 06/02/25 Allergies Penicillins Allergy (Mild, Verified 06/01/25 08:48) hives Medication List - Last Reconciled 06/08/25 by ARISTIDES Nguyen albuterol sulfate 90 mcg/actuation 2 inhalations inhalation Q4H PRN cetirizine (Zyrtec) 10 mg PO DAILY PRN fluticasone propionate 50 mcg/actuation 1 spray intranasal DAILY PRN ipratropium-albuterol 0.5 mg-3 mg(2.5 mg base)/3 mL 3 mL inhalation Q4H PRN levonorgestrel (Mirena) 1 device intrauterine ONCE levothyroxine 50 mcg PO DAILY multivitamin 1 tab PO DAILY Held on 06/02/25. Instructions: Resume on 06/16/25. pantoprazole 40 mg PO DAILY sertraline 150 mg PO DAILY HPI Comments Details: Pt is s/p LSG 06/01/2025. Mild incisional pain at center incision. No nausea. Tolerating 3 Celebrate 4:1 shakes, 1 scoop each in 8oz liquid. Hydration is adequate- 40oz at least. [facility] Medical History (Updated 06/03/25 @ 00:01 by Background Daemon) Arthritis Anxiety Depression Asthma Sleep apnea treated with continuous positive airway pressure (CPAP) Hypothyroidism GERD (gastroesophageal reflux disease) Morbid obesity Surgical History (Updated 06/03/25 @ 00:01 by Background Daemon) History of esophagogastroduodenoscopy (EGD) Hx of colonoscopy History of hip surgery History of mandibular surgery Hx of section H/O foot surgery Family History Mother Diabetes Dementia Father Non Hodgkin's lymphoma Cancer Diabetes Hypertension Daughter No problems noted. Daughter No problems noted. Son No problems noted. Son No problems noted. Social History Household Members: Family Housing: House Are you a primary career guidance technician to a significant other at home: No Do you presently have visiting nurse or other home services: No Alcohol intake: never Patient Tobacco Use Status: Never used Tobacco service: No Physical Exam Const General: cooperative, comfortable and no acute distress Orientation/consciousness: patient oriented x3 GI Other: soft, nontender, nondistended, steri-strips c/d/i Neuro General: patient oriented x3 Assessment & Plan Assessment & Plan (1) Obesity: Code(s): E66.9 - Obesity, unspecified Category: Medical Qualifiers: Obesity type: due to excess calories Obesity classification: adult class 2 (BMI 35 - 39.9) Serious obesity comorbidity presence: with serious comorbidity Body mass index: BMI 38.0-38.9 Qualified Code(s): E66.812 - Obesity, class 2; E66.01 - Morbid (severe) obesity due to excess calories; Z68.38 - Body mass index [BMI] 38.0-38.9, adult (2) S/P laparoscopic sleeve gastrectomy: Code(s): Z98.84 - Bariatric surgery status Category: Surgical Plan May shower tomorrow but no bath or submersion of abdomen in water. May start exercise tomorrow.? No abdominal exercises x 6 weeks. Abdominal binder for the next 2 weeks with activity or exercise. Continue meal plan per Dr Mirza until next f/u. Can use UAM in place of water. Reviewed pantoprazole and carafate dosing. Reminded of the pace of drinking 2 mL/min or 1oz per 15 min. Will be emailed link for post op video for review. She will text Dr Mirza next week for DVT ppx prior to her travel on 06/22.
[2025-06-08 13:27] VITALS: BP 140/63; PULSE 70; TEMP 36.9; O2SAT 97; BMI 36.0
== END 2025-06-08 13:39 | disposition home or self-care (01) ==
LOC: HO.HBS 12:26
PROVIDERS: PCP Internal Medicine; Visit Provider Physician Assistant Surgical
DX: E66.812 Obesity, class 2 (principal); E66.01 Morbid (severe) obesity due to excess calories; Z68.38 Body mass index [BMI] 38.0-38.9, adult; Z98.84 Bariatric surgery status
CPT/HCPCS: 99214

== ENCOUNTER → 2025-06-08 12:26 | Outpatient (BNVA) | payer OTHER, SELFPAY | PROVIDERS: PCP Internal Medicine; Visit Provider Physician Assistant Surgical | DX: E66.812 Obesity, class 2 (principal); Z68.36 Body mass index [BMI] 36.0-36.9, adult; Z90.3 Acquired absence of stomach [part of] | CPT/HCPCS: 99212 ==

== ENCOUNTER 2025-06-15 14:16 | Outpatient (AMB) | payer OTHER, SELFPAY ==
--- NOTE | 2025-06-15 14:05 | A.OFFWM_ITS ---
Intake Intake Visit Reasons: TV PO LSG 06/01/25 Allergies Penicillins Allergy (Mild, Verified 06/01/25 08:48) hives PFSH Medical History (Updated 06/10/25 @ 00:01 by Background Daemon) Arthritis Anxiety Depression Asthma Sleep apnea treated with continuous positive airway pressure (CPAP) Hypothyroidism GERD (gastroesophageal reflux disease) Morbid obesity Surgical History (Updated 06/10/25 @ 00:01 by Background Daemon) History of esophagogastroduodenoscopy (EGD) Hx of colonoscopy History of hip surgery History of mandibular surgery Hx of section H/O foot surgery Family History Mother Diabetes Dementia Father Non Hodgkin's lymphoma Cancer Diabetes Hypertension Daughter No problems noted. Daughter No problems noted. Son No problems noted. Son No problems noted. Social History Household Members: Family Housing: House Are you a primary patient centered care specialist to a significant other at home: No Do you presently have visiting nurse or other home services: No Alcohol intake: never Patient Tobacco Use Status: Never used Tobacco service: No Behavioral Health Assessment Weight Management Therapy Therapy Notes Details Subjective: The patient underwent weight loss surgery on 06/01/25. Her weight on the day of surgery was 225 lbs; today, she reports a current weight of 213 lbs. She denies any pain or complications during recovery and reports tolerating the liquid diet well. She describes her mood as positive and reports generally good energy levels. She also notes strong family support throughout her recovery process. The patient denies experiencing significant hunger or intrusive food-related thoughts, though she does occasionally notice such thoughts while cooking. She shared some anticipatory concerns about an upcoming trip and expressed interest in receiving additional support to help manage potential post-operative challenges she has been thinking about in advance. Objective: The patient presents for a behavioral health post-operative follow-up visit. . A guided emotional check-in was conducted to assess her current functioning, recovery, mood, and emotional state. Psychoeducation was provided on the emotional and psychological adjustments commonly experienced after bariatric surgery. We also focused on distinguishing between hunger and cravings or food thoughts, exploring possible reasons for these experiences, and strategies to work on her mindset. Emphasis was placed on becoming mindful of her physical and mental needs during these times while staying on track. The importance of adhering to the Weight Management Program (WMP) providers' instructions was emphasized, including the pace of drinking and following the meal and exercise plan. Tips and recommendations for long-term success were also discussed. Program resources were provided, and the patient was invited to join our Facebook group to stay informed about ongoing events and activities. Assessment/Response: * Mental status: WNL * Risk reported/identified: None Food/Weight/Diet Expectations of change PT started the program on 03/15/2025 at 266 lbs. The initial goal is to lose 10% of your weight before surgery, which is about 26 lbs. The ultimate weight goal is 240 lbs. before surgery. Weight is as of 04/19/2025: 247 lbs. Most recent weight as of 05/03/2025: 242 lbs. Day of surgery weight 06/01/25: 225Lbs PO weight 06/15/25: 213Lbs Target weight: 140- 150 lbs. PT is implementing the following: Current meal plan: liquid plan. 3 shakes at day. the goal is to drink 60oz liquid x day. Exercise plan: started this week, walking. Scale: Yes. Communication with provider: Tuesdays. Assessment & Plan Assessment & Plan (1) Anxiety disorder: Code(s): F41.9 - Anxiety disorder, unspecified (2) Status post bariatric surgery: Code(s): Z98.84 - Bariatric surgery status Plan The patient will be seen in approximately 6 weeks for continued behavioral health support, with a focus on post-operative adjustment, emotional regulation, and processing any stressors related to the upcoming [id number] trip. Next appointment: Scheduled for 07/27 at 11:00 AM via video. Telehealth Telehealth Telehealth Platform: [facility] Location of provider rendering services: other (Home office. [place], [place]) Location of patient: address on file Patient Identification confirmed using: Name, : Yes Telehealth method: video Patient verbally consented to treatment: Yes Patient verbally consented to billing insurance company: Yes Patient informed of any privacy concerns related to visit: Yes Minutes spent on Phone/Video with Pt.: 60 Coding Level of Care Code Established Pt Tele Psytx >53 mins (47028) Patient Type Established Diagnoses Anxiety disorder F41.9 Status post bariatric surgery Z98.84 Time Spent (min) 60
== END 2025-06-15 14:58 | disposition home or self-care (01) ==
LOC: HO.HBST 14:16
PROVIDERS: PCP Internal Medicine; Visit Provider Counselor Mental Health
DX: F41.9 Anxiety disorder, unspecified (principal); Z98.84 Bariatric surgery status
CPT/HCPCS: 90837

== ENCOUNTER 2025-07-13 08:49 | Outpatient (AMB) | payer OTHER, SELFPAY ==
--- NOTE | 2025-07-13 08:59 | A.OFFVIS_ITS ---
VS Expanded 07/13/25 09:10 BP 111/64 Blood Pressure Location Rt brachial Blood Pressure Position Sitting Pulse 77 Pulse Source Pulse Oximeter Temp 96.5 F L Temperature Source Temporal Artery Scan Pulse Oximetry 98 Oxygen Delivery Method Room Air Height 5 ft 5 in Weight 194 lb 6.4 oz BMI 32.3 Body Fat % 40.3 Body Fat Mass 78.3 Fat Free Mass 116.0 Visceral Fat Rating 9.0 Body Water % 42.5 Body Water Mass 82.4 Muscle Mass/Score 110.0 Basal Metabolic Rate/Score 1,600 Intake Visit Reasons: (OV) PO LSG 06/02/25 *Okay Per Lisy* Allergies Penicillins Allergy (Mild, Verified 06/01/25 08:48) hives Medication List - Last Reconciled 07/13/25 by ARISTIDES Nguyen albuterol sulfate 90 mcg/actuation 2 inhalations inhalation Q4H PRN cetirizine (Zyrtec) 10 mg PO DAILY PRN fluticasone propionate 50 mcg/actuation 1 spray intranasal DAILY PRN ipratropium-albuterol 0.5 mg-3 mg(2.5 mg base)/3 mL 3 mL inhalation Q4H PRN levonorgestrel (Mirena) 1 device intrauterine ONCE levothyroxine 50 mcg PO DAILY multivitamin 1 tab PO DAILY Held on 06/02/25. Instructions: Resume on 06/16/25. pantoprazole 40 mg PO DAILY sertraline 150 mg PO DAILY HPI Comments Details: This?is a?50?yo F who is s/p LSG 06/02/2025. Presents for 6w post op visit. Weight loss of 21.8lbs since last OV 5w ago. No complaints of nausea, emesis, abdominal pain or reflux, or constipation. Present meal plan includes: 3 Orgain shakes- actually switched back to Celebrate Rebuild 1 Fitcrunch bar Taking MVI Exercise routine includes: walks outside and just purchased a recumbent bike [facility] Medical History (Updated 06/10/25 @ 00:01 by Mark Kelly) Arthritis Anxiety Depression Asthma Sleep apnea treated with continuous positive airway pressure (CPAP) Hypothyroidism GERD (gastroesophageal reflux disease) Morbid obesity Surgical History History of esophagogastroduodenoscopy (EGD) Hx of colonoscopy History of hip surgery History of mandibular surgery Hx of section H/O foot surgery Family History Mother Diabetes Dementia Father Non Hodgkin's lymphoma Cancer Diabetes Hypertension Daughter No problems noted. Daughter No problems noted. Son No problems noted. Son No problems noted. Social History Household Members: Family Housing: House Are you a primary home care chaplain to a significant other at home: No Do you presently have visiting nurse or other home services: No Alcohol intake: never Patient Tobacco Use Status: Never used Tobacco service: No Assessment & Plan Assessment & Plan (1) S/P laparoscopic sleeve gastrectomy: Code(s): Z98.84 - Bariatric surgery status Category: Surgical (2) Obesity: Code(s): E66.9 - Obesity, unspecified Category: Medical Qualifiers: Obesity type: due to excess calories Obesity classification: adult class 2 (BMI 35 - 39.9) Serious obesity comorbidity presence: with serious comorbidity Body mass index: BMI 38.0-38.9 Qualified Code(s): E66.812 - Obesity, class 2; E66.01 - Morbid (severe) obesity due to excess calories; Z68.38 - Body mass index [BMI] 38.0-38.9, adult Plan Pt is interested in starting solid food- will consider asking at next check in. Doing well with weight loss, no surgical complications. Cleared for all activity , Continue PPI/sucralfate for 6w additional. RTC 6w.
[2025-07-13 09:10] VITALS: BP 111/64; PULSE 77; TEMP 35.8; O2SAT 98; BMI 32.3
== END 2025-07-13 09:37 | disposition home or self-care (01) ==
LOC: HO.HBS 08:50
PROVIDERS: PCP Internal Medicine; Visit Provider Physician Assistant Surgical
DX: E66.9 Obesity, unspecified (principal); Z68.32 Body mass index [BMI] 32.0-32.9, adult; Z90.3 Acquired absence of stomach [part of]; Z98.84 Bariatric surgery status
CPT/HCPCS: 99213

== ENCOUNTER → 2025-07-13 08:49 | Outpatient (BNVA) | payer OTHER, SELFPAY | PROVIDERS: PCP Internal Medicine; Visit Provider Physician Assistant Surgical | DX: E66.812 Obesity, class 2 (principal); Z68.32 Body mass index [BMI] 32.0-32.9, adult; Z90.3 Acquired absence of stomach [part of] | CPT/HCPCS: 99212 ==

== ENCOUNTER 2025-07-27 11:11 | Outpatient (AMB) | payer OTHER, SELFPAY ==
--- NOTE | 2025-07-27 11:00 | MHC.WMTHER ---
Intake Intake Visit Reasons: TV PO LSG 06/01/25 Allergies Penicillins Allergy (Mild, Verified 06/01/25 08:48) hives [facility] Medical History (Updated 09/24/25 @ 09:42 by ARISTIDES Nguyen) Arthritis Anxiety Depression Asthma Sleep apnea treated with continuous positive airway pressure (CPAP) Hypothyroidism GERD (gastroesophageal reflux disease) Morbid obesity Surgical History History of esophagogastroduodenoscopy (EGD) Hx of colonoscopy History of hip surgery History of mandibular surgery Hx of section H/O foot surgery Family History Mother Diabetes Dementia Father Non Hodgkin's lymphoma Cancer Diabetes Hypertension Daughter No problems noted. Daughter No problems noted. Son No problems noted. Son No problems noted. Social History Household Members: Family Housing: House Are you a primary primary care physician to a significant other at home: No Do you presently have visiting nurse or other home services: No Alcohol intake: never Patient Tobacco Use Status: Never used Tobacco service: No Behavioral Health Assessment Weight Management Therapy Therapy Notes Details Subjective: Patient reports she is doing well and has been consistent with her exercise routine. She has lost over 70 lbs since starting the program, which has positively impacted her physical health. Patient reports decreased neuropathy pain, fewer episodes of restless leg symptoms, and less ankle/foot pain. She expresses satisfaction with her progress and feels motivated to continue her current regimen. Objective: Patient presents for a post-operative behavioral health follow-up visit after weight-loss surgery on 06/01/25. During the session, we reviewed her daily routine and celebrated her recent victories, including her significant weight loss and improved physical symptoms. We reflected on expected post-operative challenges and collaboratively explored strategies to maintain consistency in her healthy behaviors. Using cognitive behavioral therapy (CBT) interventions, we identified and reframed unhelpful thoughts related to motivation and discipline, distinguishing between intrinsic and extrinsic motivators. Behavioral activation techniques were employed to help her structure her day and reinforce positive habits. We also practiced problem-solving skills to address potential barriers to exercise and healthy eating, and used psychoeducation to normalize fluctuations in motivation. Relaxation techniques and mindfulness exercises were introduced to help manage any residual discomfort or anxiety related to her recovery and ongoing lifestyle changes. Assessment/Response: Mental status: Patient is alert, oriented, and engaged throughout the session. Mood is euthymic, affect is congruent. Thought process is logical and goal-directed. No evidence of psychosis, lakesha, or cognitive impairment. Risk reported/identified: Patient denies suicidal or homicidal ideation, intent, or plan. No current safety concerns identified. Food/Weight/Diet Expectations of change PT started the program on 03/15/2025 at 266 lbs. The initial goal is to lose 10% of your weight before surgery, which is about 26 lbs. The ultimate weight goal is 240 lbs. before surgery. Weight is as of 04/19/2025: 247 lbs. Most recent weight as of 05/03/2025: 242 lbs. Day of surgery weight 06/01/25: 225Lbs PO weight 07/27/25: 192Lbs Target weight: 140- 150 lbs. PT is implementing the following: Current meal plan: 2 shakes per day, 2 bars, 1 meal 2FT/2FT. Exercise plan: 300-400 yana 6 days at week. Scale: Yes. Communication with provider: every 2 weeks. Assessment & Plan Assessment & Plan (1) Anxiety disorder: Code(s): F41.9 - Anxiety disorder, unspecified (2) Status post bariatric surgery: Code(s): Z98.84 - Bariatric surgery status Plan Follow up in 2 months. Next appointment scheduled for 09/21/25 at 11:00 am via video. Telehealth Telehealth Telehealth Platform: [employer] Location of provider rendering services: other (Home office. [place], [place]) Location of patient: address on file Patient Identification confirmed using: Name, : Yes Telehealth method: video Patient verbally consented to treatment: Yes Patient verbally consented to billing insurance company: Yes Patient informed of any privacy concerns related to visit: Yes Minutes spent on Phone/Video with Pt.: 45 [place] [address] Tele Psytx 45 mins Patient Type Established Diagnoses Anxiety disorder F41.9 Status post bariatric surgery Z98.84 Time Spent (min) 45
== END 2025-07-27 11:51 | disposition home or self-care (01) ==
LOC: HO.HBST 11:11
PROVIDERS: PCP Internal Medicine; Visit Provider Counselor Mental Health
DX: F41.9 Anxiety disorder, unspecified (principal); Z98.84 Bariatric surgery status
CPT/HCPCS: 90834

== ENCOUNTER 2025-09-21 11:17 | Outpatient (AMB) | payer OTHER, SELFPAY ==
--- NOTE | 2025-09-21 11:05 | MHC.WMTHER ---
Intake Intake Visit Reasons: TV PO LSG 06/01/25 Allergies Penicillins Allergy (Mild, Verified 06/01/25 08:48) hives REPLACED BY [facility] Medical History (Updated 09/24/25 @ 09:42 by ARISTIDES Nguyen) Arthritis Anxiety Depression Asthma Sleep apnea treated with continuous positive airway pressure (CPAP) Hypothyroidism GERD (gastroesophageal reflux disease) Morbid obesity Surgical History History of esophagogastroduodenoscopy (EGD) Hx of colonoscopy History of hip surgery History of mandibular surgery Hx of section H/O foot surgery Family History Mother Diabetes Dementia Father Non Hodgkin's lymphoma Cancer Diabetes Hypertension Daughter No problems noted. Daughter No problems noted. Son No problems noted. Son No problems noted. Social History Household Members: Family Housing: House Are you a primary intensive care anaesthetist to a significant other at home: No Do you presently have visiting nurse or other home services: No Alcohol intake: never Patient Tobacco Use Status: Never used Tobacco service: No Behavioral Health Assessment Weight Management Therapy Therapy Notes Details Subjective: Client reports she has been doing well with her post-operative lifestyle. Last week, she noticed that drinking her shake quickly was causing increased hunger later in the day. She is currently following a plan of 2 shakes, 2 bars, and 1 meal per day. She has lost a total of 93 lbs, with her current weight at 172 lbs, and continues to lose 2-3 lbs per week. She has been using a stationary bike for exercise due to convenience. She reports improved sleep, increased energy, cessation of daytime napping, improved mobility, and greater motivation. Objective: PT presents for a post-op follow up session via Telehealth. Interventions discussed include eating slowly to better recognize fullness cues and reduce hunger later in the day, maintaining regular physical activity such as using the stationary bike, and planning balanced meals to support nutrition. The client was encouraged to monitor for emotional eating triggers and use healthy coping strategies. Ongoing follow-up and celebrating non-scale achievements were recommended to help sustain motivation and long-term success. Assessment/Response: Mental status: Within normal limits Risk reported/identified: None Positive adjustment to post-op lifestyle and dietary plan. PT Demonstrates insight into eating behaviors and their impact on hunger Assessment & Plan Assessment & Plan (1) Anxiety disorder: Code(s): F41.9 - Anxiety disorder, unspecified (2) Status post bariatric surgery: Code(s): Z98.84 - Bariatric surgery status Plan Client feels stable and satisfied with her current progress. She plans to reach out for follow-up at 6 months post-op or as needed. Telehealth Telehealth Telehealth Platform: [employer] Location of provider rendering services: other (Home office. [place], [place]) Location of patient: address on file Patient Identification confirmed using: Name, : Yes Telehealth method: video Patient verbally consented to treatment: Yes Patient verbally consented to billing insurance company: Yes Patient informed of any privacy concerns related to visit: Yes Minutes spent on Phone/Video with Pt.: 55 [place] [address] Tele Psytx >53 mins Patient Type Established Diagnoses Anxiety disorder F41.9 Status post bariatric surgery Z98.84 Time Spent (min) 55
== END 2025-09-21 12:23 | disposition home or self-care (01) ==
LOC: HO.HBST 11:17
PROVIDERS: PCP Internal Medicine; Visit Provider Counselor Mental Health
DX: F41.9 Anxiety disorder, unspecified (principal); Z98.84 Bariatric surgery status
CPT/HCPCS: 90837

== ENCOUNTER 2025-09-24 09:14 | Outpatient (AMB) | payer OTHER, SELFPAY ==
--- NOTE | 2025-09-24 09:36 | MHC.OFFVISWM ---
VS Expanded 09/24/25 09:37 Height 5 ft 5 in Weight 171 lb 8 oz BMI 28.5 Intake Visit Reasons: (TV) PO LSG 06/02/25 Allergies Penicillins Allergy (Mild, Verified 06/01/25 08:48) hives Medication List - Last Reconciled 09/24/25 by ARISTIDES Nguyen albuterol sulfate 90 mcg/actuation 2 inhalations inhalation Q4H PRN cetirizine (Zyrtec) 10 mg PO DAILY PRN fluticasone propionate 50 mcg/actuation 1 spray intranasal DAILY PRN ipratropium-albuterol 0.5 mg-3 mg(2.5 mg base)/3 mL 3 mL inhalation Q4H PRN levonorgestrel (Mirena) 1 device intrauterine ONCE levothyroxine 50 mcg PO DAILY multivitamin 1 tab PO DAILY Held on 06/02/25. Instructions: Resume on 06/16/25. sertraline 150 mg PO DAILY HPI Comments Details: This?is a?50?yo F who is s/p LSG 06/02/2025. Presents for 6w post op visit. Weight loss of 22.4lbs since last OV 2mo ago. No complaints of nausea, emesis, abdominal pain or reflux, or constipation. Now off PPI and carafate. Things are going fantastic , feet hurt less (had surgery a few years ago), more energy, more mobility. HgbA1C 6.4 previously, now 4.9. She does report hair loss, started biotin almost a month ago. Present meal plan includes: 2 Celebrate Rebuild shakes- also sometimes does 30g Orgain shakes premade, split in half mixed with almond milk 2 Celebrate bars 2ff meat, 2ff veg- tried to increase to 6 total forkfuls but couldn't tolerate, but can tolerate 5ff at a time Taking MVI Exercise routine includes: walks outside and purchased a recumbent bike- reports she uses bike more now, 2500 yana per week goal (250 in AM, 250 in PM 5x/week) PFSH Medical History (Updated 09/24/25 @ 09:42 by ARISTIDES Nguyen) Arthritis Anxiety Depression Asthma Sleep apnea treated with continuous positive airway pressure (CPAP) Hypothyroidism GERD (gastroesophageal reflux disease) Morbid obesity Surgical History History of esophagogastroduodenoscopy (EGD) Hx of colonoscopy History of hip surgery History of mandibular surgery Hx of section H/O foot surgery Family History Mother Diabetes Dementia Father Non Hodgkin's lymphoma Cancer Diabetes Hypertension Daughter No problems noted. Daughter No problems noted. Son No problems noted. Son No problems noted. Social History Household Members: Family Housing: House Are you a primary care management associate to a significant other at home: No Do you presently have visiting nurse or other home services: No Alcohol intake: never Patient Tobacco Use Status: Never used Tobacco service: No Telehealth Telehealth Telehealth Platform: Telephone Location of provider rendering services: practice address Location of patient: address on file Patient Identification confirmed using: Name, : Yes Telehealth method: voice only Patient verbally consented to treatment: Yes Patient verbally consented to billing insurance company: Yes Patient informed of any privacy concerns related to visit: Yes Minutes spent on Phone/Video with Pt.: 22 Assessment & Plan Assessment & Plan (1) S/P laparoscopic sleeve gastrectomy: Code(s): Z98.84 - Bariatric surgery status Category: Surgical (2) Overweight: Code(s): E66.3 - Overweight Category: Medical Plan Pt is doing great with weight loss. She is happy with her progress and the way she feels. Will continue meal plan per Dr Mirza and work on exercise goal (she typically gets at least 2000 yana per week burned). Will order vitamin labs for complaints of hair loss. RTC 3mo. Dec 20 at 9:15am TV. (pt aware) Orders: Orders Zinc Today Z98.84 - Bariatric surgery status Vitamin B1 Today Z98.84 - Bariatric surgery status Vitamin D 25-OH Total Today Z98.84 - Bariatric surgery status Vitamin A Today Z98.84 - Bariatric surgery status Vitamin B12 and Folate Today Z98.84 - Bariatric surgery status
[2025-09-24 09:37] VITALS: BMI 28.5
== END 2025-09-24 09:54 | disposition home or self-care (01) ==
LOC: HO.HBS 09:14
PROVIDERS: PCP Internal Medicine; Visit Provider Physician Assistant Surgical
DX: E66.3 Overweight (principal); Z68.28 Body mass index [BMI] 28.0-28.9, adult; Z90.3 Acquired absence of stomach [part of]; Z98.84 Bariatric surgery status
CPT/HCPCS: 98013

== ENCOUNTER 2025-09-25 10:35 | Outpatient (REF) | payer OTHER, SELFPAY ==
[2025-09-25 12:43] LABS: Folate 12.2 ng/mL (> or = 4.0); Vitamin B12 955 pg/mL (200-900)
== END 2025-09-25 10:36 | disposition home or self-care (01) ==
LOC: HO.LAB 10:35
PROVIDERS: PCP Internal Medicine; Visit Provider Physician Assistant Surgical
DX: Z98.84 Bariatric surgery status (principal)
CPT/HCPCS: 36415; 82306; 82607; 82746; 84425; 84590; 84630